=== PATIENT | female | born 1960 | race Caucasian/White ===

== ENCOUNTER → 2017-11-02 10:52 | Outpatient (CLI) | payer OTHER, SELFPAY ==
--- NOTE | 2017-11-02 10:55 | RAD_ITS ---
STUDY: X-RAY - LUMBAR SPINE REASON FOR EXAM: Female, 57 years old. Pain following injury. TECHNIQUE: 3 view(s) of the lumbar spine were obtained. COMPARISON: None FINDINGS: Normal lumbar lordosis. There is a minimal dextroscoliosis of the lumbar spine. There is a normal alignment of the vertebrae. Normal vertebral bodies and endplates. Normal disc space heights. The soft tissue structures are unremarkable. RAD/Lumbar Spine 2 or 3 Views IMPRESSION: No acute abnormality is seen. Electronically Signed: Jensen Cisneros MD at 11:28 EDT Tel [phone], Service support ,
--- NOTE | 2017-11-02 11:00 | RAD_ITS ---
STUDY: X-RAY - CERVICAL SPINE REASON FOR EXAM: Female, 57 years old. Neck pain following injury. TECHNIQUE: 3 view(s) of the cervical spine were obtained. COMPARISON: None FINDINGS: Normal anterior atlantoaxial articulation. Normal odontoid process. There is straightening of the normal cervical lordosis. There is multi-level endplate spondylosis. There is multi-level degenerative disc disease with multilevel disc space narrowing. Normal visualized intervertebral neuroforamina. The soft tissue structures are unremarkable. RAD/Cerv Spine 2 or 3 Views IMPRESSION: Loss of the normal cervical lordosis. Degenerative changes. Electronically Signed: Jensen Cisneros MD at 11:19 EDT Tel [phone], Service support ,
== END ==
PROVIDERS: Family Provider Family Medicine; PCP Family Medicine; Visit Provider Physician Assistant
DX: S16.1XXA Strain of muscle, fascia and tendon at neck level, initial encounter (principal); S39.012A Strain of muscle, fascia and tendon of lower back, initial encounter; X58.XXXA Exposure to other specified factors, initial encounter
CPT/HCPCS: 72040; 72100

== ENCOUNTER → 2018-12-28 11:22 | Outpatient (CLI) | payer BC, SELFPAY ==
[2018-12-28 11:03] VITALS: BMI 19.3
[2018-12-28 12:19] LABS: Absolute Lymphocyte Count 1.48 X10^3/ul (0.83-4.51); Absolute Neutrophil Count 4.2 X10^3/uL (2.0-7.7); Basophil# 0.03 X10^3/uL; Basophil% 0.5 % (0-1); Eosinophil# 0.15 X10^3/uL; Eosinophils% 2.3 % (0-5); Hematocrit 42.1 % (37-47); Hemoglobin 13.5 g/dl (12.0-15.0); Lymphocyte # 1.48 X10^3/ul (4.0); Lymphocyte % 23.1 % (19-41); Mean Corp Hgb Conc 32.1 g/gl (32-36); Mean Corpuscular Volume 93.6 fL (81-99); Monocyte# 0.57 X10^3/uL; Monocyte% 8.9 % (0-10); Neutrophil # 4.16 X10^3/uL (2.7-7.7); Platelet Count 227 K/mm3 (150-450); RBC Distribution Width CV 14.2 % (11.6-14.6); RBC Distribution Width SD 46.9 fl (35.1-43.9); White Blood Count 6.4 K/mm3 (4.4-11.0)
[2018-12-28 12:22] LABS: POSITIVE COUNT NO; POSITIVE DIFFERENTIAL NO; POSITIVE MORPHOLOGY NO
[2018-12-28 12:43] LABS: Anion Gap 6 (5-15); BUN 15 mg/dL (7-18); BUN/Creat Ratio 18.6 RATIO (10-20); Calcium,Total 8.9 mg/dL (8.5-10.1); Chloride 107 mmol/L (98-107); Creatinine, Serum 0.81 mg/dL (0.55-1.02); EST Glomerular Filtration Rate 77 mL/min (>60); Est Glom Filt Rate - Afr Amer 93 mL/min (>60); Glucose 84 mg/dL (74-106); Potassium 4.2 mmol/L (3.5-5.1); Sodium Level 142 mmol/L (136-145); Thyroid Stim Hormone (TSH) 1.47 uIU/mL (0.358-3.74)
== END ==
PROVIDERS: Family Provider Family Medicine; PCP Family Medicine; Visit Provider Family Medicine
DX: R53.83 Other fatigue (principal)
CPT/HCPCS: 36415; 80048; 84443; 85025

== ENCOUNTER → 2019-03-18 09:20 | Outpatient (CLI) | payer BC, SELFPAY ==
[2019-03-18 09:16] VITALS: BMI 19.5
--- NOTE | 2019-03-18 09:21 | RAD_ITS ---
STUDY: X-RAY - LEFT HAND REASON FOR EXAM: Female, 58 years old. Chronic pain TECHNIQUE: 3 view(s) of the hand. COMPARISON: None. FINDINGS: Previous amputation of the fourth digit. Remote deformity of the first tuft. Sutures in the ventral wrist soft tissues. No acute fractures or osteolytic lesions are seen. Visualized joint spaces are intact. RAD/Hand Min 3 Views IMPRESSION: No acute osseous abnormality is evident. Remote deformity of the first tuft. Electronically Signed: Julio Inman MD at 16:59 EDT Tel , Service support ,
== END ==
PROVIDERS: Family Provider Family Medicine; PCP Family Medicine; Referring Provider Orthopaedic Surgery; Visit Provider Orthopaedic Surgery
DX: M25.642 Stiffness of left hand, not elsewhere classified (principal)
CPT/HCPCS: 73130

== ENCOUNTER → 2019-08-12 13:08 | Outpatient (CLI) | payer BC, SELFPAY ==
[2019-08-12 06:37] VITALS: BMI 19.5
--- NOTE | 2019-08-12 13:09 | RAD_ITS ---
STUDY: X-RAY - RIGHT HAND, ATTENTION FIRST FINGER REASON FOR EXAM: Female, 58 years old. pain at base of thumb from repetitive motion at work TECHNIQUE: 3 view(s) of the finger were obtained. COMPARISON: None. FINDINGS: Normal metacarpal head. Normal metacarpophalangeal joint. Normal proximal phalanx. Normal middle phalanx. Normal distal phalanx. Normal proximal interphalangeal joint. Normal distal interphalangeal joint. RAD/Finger(s) Min 2 Views IMPRESSION: Normal x-ray examination of the finger. Electronically Signed: Jerry De La Rosa MD at 23:38 EST , Service support ,
== END ==
PROVIDERS: PCP Family Medicine; Referring Provider Physician Assistant Surgical; Visit Provider Physician Assistant Surgical
DX: M79.644 Pain in right finger(s) (principal)
CPT/HCPCS: 73140

== ENCOUNTER 2020-03-13 06:53 | Day surgery (SDC) | payer OTHER, BC, SELFPAY ==
[2020-02-10 08:01] VITALS: BMI 19.5
[2020-03-05 11:04] VITALS: BMI 19.5
--- NOTE | 2020-03-13 07:11 | HP.PCM_ITS ---
History and Physical Date of Admission: 03/13/20 Intake Vital Signs 03/05/20 BMI 19.5 Intake Visit Reasons: right thumb Chief Complaint: requests referral to mental health counseler Allergies codeine Allergy (Severe, Verified 06/30/19 08:30) unknown pentazocine [From Talwin] Allergy (Verified 08/12/19 06:35) Unknown Sulfa (Sulfonamide Antibiotics) Adverse Reaction (Verified 06/30/19 08:30) itching, vommitting [facility] Social History (Updated 03/05/20 @ 12:[address] Juma Sparks DO) Smoking Status: Never smoker alcohol intake: current alcohol intake frequency: a few times a week HPI right thumb: Details: Parts of this documentation were recorded by a scribe, this documentation accurately reflects the service provided and the decisions made by me, Dr. Juma Sparks DO 03/05/20 1022. JOSUE GONZALES is a 59 year old F here today for right thumb. Patient is here today to sign surgery consent for the right thumb A1 kin release. DOS scheduled for 03/13/2020. Denies numbness, tingling or other associated symptoms. ROS Const Denies frequent falls, Denies headache(s), Denies weakness Eyes Denies loss of vision ENT Denies headache(s) Card Denies fainting Denies nipple discharge Musc Denies abnormal walking, Reports joint pain, Denies joint swelling, Reports limited joint movement, Denies numbness, Denies radiating pain into limb, Reports stiffness, Denies tingling Skin/Breast Denies nipple discharge Neuro No abnormal walking, No behavioral changes, No confusion, No frequent falls, No headache(s), No loss of vision, No memory loss, No numbness, No fainting, No tingling, No weakness Psych Denies behavioral changes, Denies confusion, Denies memory loss Ortho Exam Right Wrist/Hand A1 kin trigger: Yes Right Wrist: No ROM-Flexion 0-80 WRIST: 90 degrees IP flexion 80 degrees AP flexion Faint triggering palpated on examination hypertrophied and tender A1 kin Supplemental Info 08/12/2019 x-ray right thumb no significant findings Assessment & Plan Problems 1. Strain of thumb, right 2. Trigger finger of right thumb M65.311 Plan We discussed surgical intervention which would be an A1 kin release of the thumb. We discussed the risk of radial digital nerve injury with surgery And potential consequences of. Educated that the surgery would not give her the same flexion that she has in the left hand. Reviewed the pre-operative plans with the patient. Risks and benefits of the procedure were fully explained, including but not limited to infection, neurovascular injury, continued pain, arthritis, stiffness, need for further surgery, re-injury, DVT, PE, general risks of anesthesia, and loss of limb or life. The patient understands all the risks and does wish to proceed with written consent. She will leave the surgical dressing on for 2 days post op then she can apply a band-aid to the incision. Follow up 2 weeks post op or sooner if pain, swelling, numbness or associated symptoms, or concerns develop. All questions answered. Patient in agreement of plan. Coding Level of Care Code Off vis,est,level 2 Diagnoses Strain of thumb, right Trigger finger of right thumb M65.311 I have re-examined the patient. There are no clinical changes since date of exam Procedure Criteria Procedure Type: Elective COVID Risk Discussion: The surgeon/proceduralist and patient have discussed in detail the risk of exposure to and/or potential harm posed by the COVID-19 virus with having a surgery/procedure at this time versus the risk of delaying the surgery/procedure. It is not possible to know either the risk of delaying the surgery or procedure or chance of getting an infection with perfect accuracy, but a joint decision was made between the patient and the surgeon/proceduralist to proceed at this time with the scheduled surgery/procedure as indicated on the consent form.
[2020-03-13 07:15] VITALS: BP 118/71; PULSE 51; RESP 16; TEMP 37.3; O2SAT 100; BMI 19.3
[2020-03-13] MEDS: Lactated Ringers 1,000 ML 100 ML IV (07:40)
[2020-03-13] MEDS: Cefazolin 2 GM in 0.9% Normal Saline 100 ML IV (08:04)
[2020-03-13 08:36] VITALS: BP 118/71; BP 129/72; PULSE 52; RESP 16; TEMP 36.4; O2SAT 95
--- NOTE | 2020-03-13 08:39 | DCINST_ITS ---
Discharge Diet: No Restrictions Keep extremity elevated above heart level: Operative Extremity Additional Instructions: Ice and elevate operative extremity next 72 hours. Keep dressing on clean and dry for 48 hours then may remove and allow warm soapy water to rinse over incision but do not submerge until sutures are out. Then apply bandaid over incision and change daily. encourage finger range of motion. Not lift more than 1/2 pound. Keep incision clean to avoid infection. Allergies/Adverse Reactions: Allergies codeine Allergy (Severe, Verified 03/07/20 10:03) unknown acetaminophen [From Percocet] Allergy (Verified 03/07/20 10:03) Hives oxycodone [From Percocet] Allergy (Verified 03/07/20 10:03) Hives pentazocine [From Talwin] Allergy (Verified 03/07/20 10:03) Unknown Sulfa (Sulfonamide Antibiotics) Adverse Reaction (Verified 03/07/20 10:03) itching, vommitting Medications to take at Discharge Buspirone HCl 5 mg PO QHS 03/07/20 Sertraline HCl [Zoloft] 50 mg PO QHS 03/07/20 Hydrocodone Bitart/Apap 5-325 [Warren 5MG-325MG] 1 - 2 tablet PO Q4H PRN PRN 5 Days #20 tablet 03/13/20 The following prescriptions were given: Hydrocodone Bitart/Apap 5-325 [Warren 5MG-325MG] 1 - 2 tablet PO Q4H PRN PRN 5 Days #20 tablet PRN Reason: Pain Transmission Status: Sent to [facility] Primary Care Physician: Clarence Unger DO [Primary Care Provider] - Test Results: Test results from this visit will be discussed in further detail at your follow- up appointment, if applicable.
[2020-03-13 08:40] VITALS: BP 114/77; BP 118/71; PULSE 51; RESP 16; O2SAT 97
--- NOTE | 2020-03-13 08:41 | PCM.OPRPT ---
Report of Operation Date of Procedure: 03/13/20 Description of Surgical Findings:: Preoperative diagnosis; right thumb digit trigger finger Postoperative diagnosis; same Procedure: Right thumb digit A1 kin release Anesthesia: Local with MAC Tourniquet time; 10 minutes 250 mm Hg Complications: None Indication for procedure; This is a 45-alse-nyo-female with symptoms consistent with trigger thumb. Risks benefits and alternatives were reviewed including risks of bleeding infection nerve tendon tissue damage need for further surgery and continued pain and symptoms, hypersensitivity to scar/incision and recurrence. Procedure; The patient was met in the preoperative holding area the operative extremity was identified by both patient and physician and was marked the patient was met by anesthesia and brought back to the operating room and transferred to the operating table in the supine position. Aanesthesia was started. A well-padded tourniquet was placed on the operative upper extremity. The patient was prepped and draped in the usual sterile fashion. A timeout was called to ensure the proper patient procedure and extremity were being contemplated. 0.5 percent Marcaine was injected into the incisional area. Esmarch was used tourniquet was inflated. 15 blade scalpel was used to make a longitudinal incision directly over the A1 kin was carried down through the subcutaneous tissue Nikko retractors placed radial and ulnar protecting the digital nerves and a Ragnell retractor was used at the apex of the incision under direct visualization a deep blade scalpel was used to release the A1 kin. The wound was thoroughly irrigated and closed with 4-0 nylon vertical mattress edges. Dressing was applied in the form of Xeroform 4 x 4 web roll and an Bishnu wrap. Patient tolerated the procedure well was brought back to the PACU in stable condition.
[2020-03-13 08:45] VITALS: BP 118/71; BP 119/74; PULSE 51; RESP 16; O2SAT 99
[2020-03-13 08:51] VITALS: BP 118/71; BP 127/75; PULSE 52; RESP 16; TEMP 36.7; O2SAT 99
[2020-03-13] MEDS: HYDROcodone Bitartrate/Apap 5/325 Tablet PO (09:22)
[2020-03-13 10:29] VITALS: BP 118/71; BP 131/87; PULSE 54; RESP 16; TEMP 37; O2SAT 100
== END 2020-03-13 10:31 | disposition home or self-care (01) ==
LOC: SDC 06:54 → AC 06:55
PROVIDERS: Anesthesiology; PCP Family Medicine; Referring Provider Orthopaedic Surgery; Visit Provider Orthopaedic Surgery
PROC: (CPT 26055; principal; 2020-03-13 08:20)
DX: M65.311 Trigger thumb, right thumb (principal); Z11.59 Encounter for screening for other viral diseases; F41.9 Anxiety disorder, unspecified; F32.9 Major depressive disorder, single episode, unspecified; Z79.899 Other long term (current) drug therapy
CPT/HCPCS: 01810; 26055; 87635; 94799; J7120; J2405; U0003

== ENCOUNTER 2020-04-23 09:30 | Outpatient (RCR) | payer OTHER, SELFPAY ==
[2020-03-28 09:07] VITALS: BMI 19.3
--- NOTE | 2020-04-16 13:57 | HP.OTEVAL_ITS ---
Patient's Visit Information JOSUE GONZALES is a 59 year old F, referred to Occupational Therapy by Dr. Juma Sparks DO, with a diagnosis of right trigger finger. Date of Evaluation: 04/16/20 Occupational Therapist: Sofia Gee, CORNELIUS/Leena, CHT - Subjective This 59 year old female was seen for OT eval with trigger finger release- in Jul. pt had injection but this wore off and she decided to have sx on 03/13/20. 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 2019. Now pain in palm of her hand- states pain is in AM - Pain right hand 2 Pain Intensity Range: 0, 6 - ROM CMC: right 15 left 15 MP: right 55 left 65 IP: right 55 left 90 Opposition: right 10 left 10 ROM Comments: pt has left D4 removed - Strength Senior Data Architect: right 50# left 60# Lateral Pinch: right 12# left 10# Tripod Pinch: right 8# left 10# Tip-to-Tip Pinch: right 10# left 10# - Sensation Sensation Comments: denies - Quick DASH-Disab of Arm,Shoulder& Hand Quick DASH Score: 10.0000 - Goals Goal:: pt will demo a increase in right logging assistant strength by 10# to increase ind with ADLs and IADLs by d/c Goal:: pt will demo a increase in right thumb AROM to increase ind with ADls and IADls by d/c Goal:: pt will report pain no greater than 1/10 with ADLs and IADls by d/c Goal:: pt will demo understanding of scar mtg by end of 2nd session. - Rehabilitation General Assessment: pt is currently 4 weeks and 6 days s/p right A1 kin release. pt demo with limited right thumb ROM and strength of dominate hand. this limites pt with ADLs and IADLs at this time. Pt would benefit from skilled OT services 2x week for 3-4 weeks to return pt to PLOF. Today therapist ed. pt on AROM, strengthening of thumb, tendong blocking and scar mtg. pt demo understanding and agree to POC Rehabilitation Potential: Good - Anticipated Interventions A/AAROM/PROM, Strengthening, Scar Care, Modalities, Joint Protection/Energy Conservation - Visit Plan Frequency: 2-3x /Week Duration: 4 Weeks TEXT: Thank you for the opportunity to evaluate your patient. For Medicare and Medicare HMO plans, please review the plan of care and approve it. It will need to be FAXED BACK to us at [phone] for Medicare purposes. Please let me know if there are questions or concerns regarding this plan of care. Physician Signature: Date:
--- NOTE | 2020-06-26 13:50 | HP.OT.NRP ---
JOSUE Stern CHRISTIAN was seen in my office for initial evaluation on 04/16/20. The following Plan of Care was established for this patient: Initial Frequency: 2-3x /Week Initial Duration: 4 Weeks Plan: cont POC Anticipated Interventions: A/AAROM/PROM, Strengthening, Scar Care, Modalities, Joint Protection/Energy Conservation This patient was last seen in our office 04/23/20. Pertinent comments regarding their Occupational therapy will appear below: pt was seen in OT for 3 visits and has not scheduled further apts. due to time lapse in services pt d/c at this time. At this point I will be discontinuing this patient from occupational therapy. I would be happy to see this patient again in the future if found appropriate by the physician. Thank you! Sofia Gee, OTR/L, CHT
== END 2020-04-23 19:00 | disposition home or self-care (01) ==
LOC: OT 09:30
PROVIDERS: PCP Family Medicine; Referring Provider Orthopaedic Surgery; Visit Provider Orthopaedic Surgery
DX: M65.311 Trigger thumb, right thumb (principal)
CPT/HCPCS: 97035; 97110; 97166; 97530

== ENCOUNTER → 2020-12-19 10:10 | Outpatient (CLI) | payer BC, SELFPAY ==
[2020-11-21 08:57] VITALS: BMI 19.3
--- NOTE | 2020-12-19 10:13 | BI_ITS ---
MAMMOGRAPHY - BILATERAL SCREENING REASON FOR EXAM: Female, 60 years old. Routine annual screening examination. PERTINENT HISTORY: Non-contributory. Bilateral breast implants. TECHNIQUE: Digital bilateral breast geri (3D mammographic acquisition) in the CC and MLO projections. 2-D mediolateral oblique (MLO) and craniocaudad (CC) views of both breasts were obtained. CAD: Full Field Digital Mammography with Computer Added Detection was performed. COMPARISON: Comparison is made with prior study dated 02/11/2013. FINDINGS: Breast Composition: The breasts are extremely dense, which lowers the sensitivity of mammography. There are no dominant masses or suspicious calcifications. Stable appearance of the bilateral breast implants. No other significant abnormalities are identified. There has been no significant change since the prior study. BI/SCRN MAMM (CAD)W/GERI BILAT IMPRESSION: Stable bilateral screening mammogram. Yearly follow-up mammogram recommended. (A) ASSESSMENT CATEGORY: BIRADS Category 2: Benign. A letter regarding these results will be sent to the patient by the facility within 30 days. Approximately 10% of breast cancers are not detected by mammography. A normal mammogram should not delay biopsy of a clinically suspicious abnormality. [id number] Electronically Signed: Jensen Cisneros MD at 11:01 EDT , Service support ,
== END ==
PROVIDERS: PCP Family Medicine; Referring Provider Family Medicine; Visit Provider Family Medicine
DX: Z12.31 Encounter for screening mammogram for malignant neoplasm of breast (principal)
CPT/HCPCS: 77063; 77067

== ENCOUNTER → 2021-05-15 08:55 | Outpatient (CLI) | payer BC, SELFPAY ==
[2021-05-15 12:18] LABS: Anion Gap 6 (5-15); BUN 19 mg/dL (7-18); BUN/Creat Ratio 20.6 RATIO (10-20); Calcium,Total 9.7 mg/dL (8.5-10.1); Chloride 103 mmol/L (98-107); Cholesterol 211 mg/dL (200); Creatinine, Serum 0.92 mg/dL (0.55-1.02); EST Glomerular Filtration Rate 66 mL/min (>60); Est Glom Filt Rate - Afr Amer 79 mL/min (>60); Glucose 85 mg/dL (74-106); High Density Lipoprotein 86 mg/dL; Potassium 4.3 mmol/L (3.5-5.1); Sodium Level 138 mmol/L (136-145); Triglycerides 79 mg/dL; Very Low Density Lipoprotein 16 mg/dL (5-40)
== END ==
PROVIDERS: PCP Family Medicine; Referring Provider Family Medicine; Visit Provider Family Medicine
DX: R53.82 Chronic fatigue, unspecified (principal)
CPT/HCPCS: 36415; 80048; 80061

== ENCOUNTER → 2022-12-23 | Outpatient (CLI) | payer OTHER, SELFPAY ==
[2022-12-23 12:26] LABS: Absolute Lymphocyte Count 1.16 X10^3/uL (0.83-4.51); Absolute Neutrophil Count 2.6 X10^3/uL (2.0-7.7); Basophil# 0.04 X10^3/uL; Basophil% 0.9 % (0-1); Eosinophil# 0.16 X10^3/uL; Eosinophils% 3.7 % (0-5); Hematocrit 41.4 % (37-47); Hemoglobin 13.4 g/dL (12.0-15.0); Lymphocyte # 1.16 X10^3/ul (0.83-4.51); Lymphocyte % 26.9 % (19-41); Mean Corp Hgb Conc 32.4 g/dL (32-36); Mean Corpuscular Volume 98.8 fL (81-99); Mean Platelet Vol. 10.9 fl (6.2-12.0); Monocyte# 0.36 X10^3/uL; Monocyte% 8.3 % (0-10); NRBC Flagged by Analyzer 0 % (0-5); Neutrophil # 2.59 X10^3/uL (2.7-7.7); Platelet Count 225 K/mm3 (150-450); RBC Distribution Width CV 12.8 % (11.6-14.6); RBC Distribution Width SD 46.5 fl (35.1-43.9); Red Blood Count 4.19 M/mm3 (4.2-5.4); White Blood Count 4.3 K/mm3 (4.4-11.0)
[2022-12-23 13:25] LABS: Anion Gap 8 (5-15); BUN 18 mg/dL (7-18); BUN/Creat Ratio 23.3 RATIO (10-20); Calcium,Total 9.6 mg/dL (8.5-10.1); Chloride 106 mmol/L (98-107); Creatinine, Serum 0.77 mg/dL (0.55-1.02); EST Glomerular Filtration Rate 80 mL/min (>60); Est Glom Filt Rate - Afr Amer 96 mL/min (>60); Glucose 82 mg/dL (74-106); Potassium 4.8 mmol/L (3.5-5.1); Sodium Level 140 mmol/L (136-145); Thyroid Stim Hormone (TSH) 3.78 uIU/mL (0.358-3.74)
== END | disposition home or self-care (01) ==
LOC: BIMLAB 08:54
PROVIDERS: PCP Family Medicine; Referring Provider Family Medicine; Visit Provider Family Medicine
DX: F41.9 Anxiety disorder, unspecified (principal)
CPT/HCPCS: 36415; 80048; 84443; 85025

== ENCOUNTER → 2023-02-24 | Outpatient (CLI) | payer OTHER, SELFPAY ==
--- NOTE | 2023-02-24 10:51 | RAD_ITS ---
STUDY: X-RAY - CERVICAL SPINE REASON FOR EXAM: Female, 62 years old. neck pain TECHNIQUE: 5 view(s) of the cervical spine were obtained. COMPARISON: None FINDINGS: Normal anterior atlantoaxial articulation. Normal odontoid process. Normal cervical lordosis. There is multi-level endplate spondylosis. There is multi-level degenerative disc disease with multilevel disc space narrowing. Normal visualized intervertebral neuroforamina. The soft tissue structures are unremarkable. There is no demonstrated fracture of the cervical spine. RAD/Cerv Spine 4 or 5 Views IMPRESSION: Multilevel degenerative changes with no acute abnormality. Electronically Signed: Connor Granda MD at 17:42 EDT ,
== END | disposition home or self-care (01) ==
LOC: MTRAD 10:51
PROVIDERS: PCP Family Medicine; Referring Provider Family Medicine; Visit Provider Family Medicine
DX: M54.2 Cervicalgia (principal)
CPT/HCPCS: 72050

== ENCOUNTER → 2023-07-10 | Outpatient (CLI) | payer OTHER, SELFPAY ==
--- NOTE | 2023-07-10 13:11 | BI_ITS ---
MAMMOGRAPHY - BILATERAL SCREENING REASON FOR EXAM: Female, 62 years old. Routine annual screening examination. PERTINENT HISTORY: Sister with breast cancer. Bilateral breast implants. TECHNIQUE: Digital bilateral breast geri (3D mammographic acquisition) in the CC and MLO projections. 2-D mediolateral oblique (MLO) and craniocaudad (CC) views of both breasts were obtained. CAD: Full Field Digital Mammography with Computer Added Detection was performed. COMPARISON: Comparison is made with prior study dated December 19, 2020 and February 11, 2013. FINDINGS: Breast Composition: The breasts are extremely dense, which lowers the sensitivity of mammography. There are no dominant masses or suspicious calcifications. Stable appearance of the bilateral breast implants. No other significant abnormalities are identified. There has been no significant change since the prior study. BI/SCRN MAMM (CAD)W/GERI BILAT IMPRESSION: Stable bilateral screening mammogram. Yearly follow-up mammogram recommended. (A) ASSESSMENT CATEGORY: BIRADS Category 2: Benign. A letter regarding these results will be sent to the patient by the facility within 30 days. Approximately 10% of breast cancers are not detected by mammography. A normal mammogram should not delay biopsy of a clinically suspicious abnormality. [id number] Electronically Signed: Jensen Cisneros MD at 14:25 EST ,
== END | disposition home or self-care (01) ==
LOC: OPBI 13:10
PROVIDERS: PCP Family Medicine; Referring Provider Family Medicine; Visit Provider Family Medicine
DX: Z12.31 Encounter for screening mammogram for malignant neoplasm of breast (principal)
CPT/HCPCS: 77063; 77067

== ENCOUNTER → 2023-07-25 | Outpatient (CLI) | payer OTHER, SELFPAY ==
--- NOTE | 2023-07-25 08:29 | MRI_ITS ---
EXAM: MR CERVICAL SPINE WITHOUT INTRAVENOUS CONTRAST CLINICAL INDICATION: neck pain- RIGHT SIDE TECHNIQUE: Multiplanar and multisequence MR images of the cervical spine without intravenous contrast were performed. COMPARISON: Plain films February 24, 2023. FINDINGS: VERTEBRAE: Straightening and mild reversal of the usual lordotic curvature, centered at C4-5. SPINAL CORD: Unremarkable in signal and morphology. SOFT TISSUES: Unremarkable. No prevertebral soft tissue swelling. LYMPH NODES: Unremarkable. There is no cervical adenopathy. DISCS/SPINAL CANAL/NEURAL FORAMINA: C2-C3: Unremarkable. Normal disc height and morphology. Normal spinal canal. Normal neuroforamina. C3-C4: Moderate disc space narrowing with mild uncovertebral osteophytes and minimal endplate changes, small uncovertebral osteophytes and mild bilateral neural foraminal stenosis. No tanisha spinal stenosis. C4-C5: Moderate decreased disc height and anterior mild broad-based disc protrusion, uncovertebral osteophytes and mild neural foraminal narrowing, greater on the left. No spinal stenosis or cord impingement. C5-C6: Moderate decreased disc height, uncovertebral osteophyte-disc complexes, moderate right greater than left neural foraminal stenosis due to osteophyte-disc complex, and mild narrowing of the ventral thecal sac without tanisha cord impingement or canal stenosis. C6-C7: Moderate disc space narrowing, uncovertebral osteophytes, at least moderate left and mild right neural foraminal stenosis, mild annular disc bulge. No tanisha spinal stenosis or cord impingement. C7-T1: Unremarkable. Normal disc height and morphology. Normal spinal canal. Normal neuroforamina. MRI/Spine Cervical (Routine) IMPRESSION: Multilevel degenerative changes with uncovertebral osteophyte-disc complexes and multilevel neural foraminal stenosis, greatest on the left at C4-5 and C5-6. No tanisha spinal canal stenosis or cord impingement. No visible frankly herniated disc Electronically Signed: Elen Short MD at 4:14 EST ,
--- OUTSIDE RECORDS SUMMARY | 2023-07-25 08:29 | XMS RPT_ITS | CCD ---
Author Name Unknown Address [address] [place] [address] Organization [facility] Care Team Providers Care Distribution Center Manager Name Role Phone WAYEva MARY LOU Unavailable Unavailable BRADLEY AWAD Unavailable Unavailable Results Test Name Value Interpretation Reference Range Facil ity Encounters Encounter Date Encounter Type Care Provider Facility Start: 06-29-2017 End: 06-30-2017 [address] [facility] Facility:B Payers Date Payer Category Payer Unknown [id number] Summary Purpose Family History No Family History Records Found Advance Directives No Advanced Directives Records Found Additional Source Comments INFORMATION SOURCE (unrecogn ized section and content) FOR RECORDS PERTAINING TO PATIENTS WHO ARE OR HAVE BEEN ENROLLED IN A CHEMICAL DEPENDENCY/SUBSTANCEABUSE PROGRAM, SOME INFORMATION MAY BE OMITTED. This clinical summary was aggregated from multiple sources. Caution should be exercised in using it in the provision of clinical care. This summary normalizes information from multiple sources, and as a consequence, information in this document may materially change the coding, format and clinical context of patient data. In addition, data may be omitted in some cases. CLINICAL DECISIONS SHOULD BE BASED ON THE PRIMARY CLINICAL RECORDS. [employer] provides no warranty or guarantee of the accuracy or completeness of information in this document.
== END | disposition home or self-care (01) ==
LOC: MRI 08:27
PROVIDERS: PCP Family Medicine; Referring Provider Family Medicine; Visit Provider Family Medicine
DX: M54.2 Cervicalgia (principal)
CPT/HCPCS: 72141

== ENCOUNTER 2023-10-28 06:18 | Observation (INO) | payer OTHER, MEDICARE, SELFPAY ==
--- NOTE | 2023-10-21 08:34 | EKG12_ITS ---
Test Reason : PRE-OP Blood Pressure : / mmHG Vent. Rate : 057 BPM Atrial Rate : 057 BPM P-R Int : 152 ms QRS Dur : 078 ms QT Int : 432 ms P-R-T Axes : 087 034 071 degrees QTc Int : [address] & T WAVE ABNORMALITY, NON SPECIFIC Confirmed by Chalo Guerra ([id number]), desk editor JAY NEW ([id number]) on 10/21/2023 9:43:35 AM Referred By: MAYANK Confirmed By:Chalo Guerra
[2023-10-21 09:28] LABS: Absolute Neutrophil Count 2.6 X10^3/uL (2.0-7.7); Basophil# 0.03 X10^3/uL; Basophil% 0.7 % (0-1); Eosinophil# 0.11 X10^3/uL; Eosinophils% 2.6 % (0-5); Hematocrit 39.9 % (37-47); Lymphocyte % 26.4 % (19-41); Mean Corp Hgb Conc 32.6 g/dL (32-36); Mean Corpuscular Hgb 30.7 pg (27.0-32.0); Mean Corpuscular Volume 94.3 fL (81-99); Mean Platelet Vol. 9.8 fl (6.2-12.0); Monocyte# 0.33 X10^3/uL; Monocyte% 7.9 % (0-10); NRBC Flagged by Analyzer 0 % (0-5); Neutrophil # 2.59 X10^3/uL (2.7-7.7); Neutrophil % 62.2 % (47-70); Platelet Count 259 K/mm3 (150-450); RBC Distribution Width CV 12.9 % (11.6-14.6); RBC Distribution Width SD 44.2 fl (35.1-43.9); Red Blood Count 4.23 M/mm3 (4.2-5.4); White Blood Count 4.2 K/mm3 (4.4-11.0)
[2023-10-21 10:00] LABS: Anion Gap 6 (5-15); BUN 13 mg/dL (7-18); BUN/Creat Ratio 16.8 RATIO (10-20); Calcium,Total 9.2 mg/dL (8.5-10.1); Chloride 108 mmol/L (98-107); Creatinine, Serum 0.77 mg/dL (0.55-1.02); EST Glomerular Filtration Rate 80 mL/min (>60); Est Glom Filt Rate - Afr Amer 97 mL/min (>60); Glucose 85 mg/dL (74-106); Magnesium 2.4 mg/dL (1.6-2.6); Potassium 3.8 mmol/L (3.5-5.1); Sodium Level 141 mmol/L (136-145)
[2023-10-21 11:26] LABS: HIV - WCH Non-Reactive (Nonreactive); Hepatitis B Surface Antibody Reactive; Hepatitis C Antibody Non-Reactive (Nonreactive)
[2023-10-22 05:07] LABS: Hepatitis A AB, Total Negative (Negative)
[2023-10-28] VITALS (15 sets, daily range): BP systolic 133–164; BP diastolic 61–105; PULSE 57–76; RESP 14–18; TEMP 36.6–37; O2SAT 92–99; BMI 20.8
[2023-10-28] MEDS: Acetaminophen 500 MG Tablet 1000 MG PO ×3 (06:47→20:12)
[2023-10-28] MEDS: dexAMETHasone 10 MG/ML Vial 8 MG IV (06:48)
[2023-10-28] MEDS: Magnesium 1 GM over 15 mins IV (06:48)
[2023-10-28 07:25] LABS: Bedside Glucose 61 mg/dL (74-106)
--- NOTE | 2023-10-28 07:28 | HP.PCM_ITS ---
History and Physical Date of Admission: 10/28/23 MR#: [id number] Acct: [id number] Name: JOSUE GONZALES Rep #: [id number]
--- NOTE | 2023-10-28 07:28 | PCM.HP.BLA ---
History and Physical Date of Admission: 10/28/23 MR#: [id number] Acct: [id number] Name: ALLIE GONZALES Rep #: [id number] : 1960 Provider: Dr. Johnson Diallo MD Age/Sex: 63/F Location: [facility] Status: Signed Intake Vital Signs 06/30/2308:51 10/13/2410:22 Height 5 ft 9 in 5 ft 9 in Intake Visit Reasons: cervical spine Accompanied by: Self Is patient in pain?: Yes Pain scale (1-10): 3 Allergies codeine Allergy (Severe, Verified 10/20/23 10:25) unknownacetaminophen [From Percocet] Allergy (Verified 10/20/23 10:25) Hivesoxycodone [From Percocet] Allergy (Verified 10/20/23 10:25) Hivespentazocine [From Talwin] Allergy (Verified 10/20/23 10:25) Unknownhydrocodone Adverse Reaction (Verified 10/20/23 10:25) VomitingSulfa (Sulfonamide Antibiotics) Adverse Reaction (Verified 10/20/23 10:25) itching, vommitting Medications sertraline 100 mg tablet 100 mg PO QHS depression #145 tabs 12/23/22 [Rx Confirmed 10/20/23] buspirone 10 mg tablet 10 mg PO BID depression #180 tabs 06/07/23 [Rx Confirmed 10/20/23] hydrocodone-acetaminophen 5-325mg 5mg-325mg 1 tab PO TID PRN pain 10/14/23 [History Confirmed 10/20/23] famciclovir 500 mg tablet 500 mg PO BID PRN COLD SORES 10/16/23 [History Confirmed 10/20/23] PFSH Medical History (Updated 10/20/23 @ 10:26 by Margaux Hwang) Alcohol use Arthritis Cancer H/O exam under anesthesia with epidural steroid injection History of IBS History of melanoma neck and back pain Non-smoker Wears glasses Surgical History History of amputation of finger History of appendectomy History of hysterectomy skin cancer removal Status post trigger finger release Family History Sister Cancer, Onset Age: 68 stage one breast cancer Social History Smoking Status: Never smoker alcohol intake: current alcohol intake frequency: a few times a week HPI cervical spine Details: This documentation accurately reflects the service provided and the decisions made by me, Dr. Johnson Diallo MD 10/20/23 1020. Part of today?s visit was documented by Margaux Gramajo ATC, acting as scribe. ALLIE GONZALES is a 63 year old F here today for pre-op for anterior cervical spine disc fusion. Patient states pain has pretty much stayed the same since her last visit. She has gotten epidural injections which was on 09/10/[address] King and he also gave her a prescription for hydrocodone to take for the pain. Allie continues to have right-sided neck pain but also gets numbness in both fingertips worse on the left than the right. She has had multiple epidural steroid injections. She is also being started with hydrocodone by Dr. King recently. Her pain is affecting her quality of life and is here for her preoperative visit. Following is a previous history. 09/25/23: ALLIE GONZALES is a 62 year old F here today for follow up on neck pain. Pt. was seen by pain management and received two steroid injections which she states were not effective in relieving her pain and discomfort. She states she does experience some intermittent bilateral finger numbness and tingling. Her pain is aggravated with heavy lifting she is required to do at work. Allie has had 2 sets of epidural injections both transforaminal as well as interlaminar by Dr. King over the last 2 months. Her first injection gave her some temporary relief but the second injection did not seem to give her any relief. She is also going through months of physical therapy without any significant relief. She has not noticed tingling numbness in both hands and the tips of index and middle fingers. She is however not bothered significantly by the numbness. She continues to have neck pain which is right-sided and goes along the trapezius. 08/07/23: ALLIE GONZALES is a 62 year old F here today for cervical spine pain. She reports a nine month history of neck pain. She has seen a chiropractor, PT and had cortisone injections with minimal relief. She reports constant dull, sharp and stabbing pain in her neck. She reports the pain is worse the pain is worse on the right side. She reports when driving her fingers will become tingling and numb. She recently has a cervical spine MRI. Allie does not remember any injury that started her pain. She did not have any neck pain prior to a year ago. She says that the neck pain is in the right paraspinal region goes up to the mastoid region and sometimes the occiput and sometimes along the trapezius. She does not have any left-sided pain. She does not have any radicular pain below the shoulder. She has some on and off numbness in the fingertips on both sides. She is right-hand dominant. She denies dropping objects or any dexterity issues. She denies any balance issues. She has tried physical therapy, chiropractic treatment, trigger point injections. Ortho Exam General General: Yes no acute distress Neurologic: Yes alert and Yes oriented x3 Spine SPINE TESTING CERVICAL THORACIC LUMBAR Musculoskeletal Strength 0=absent - 5=normal Details: Examination of the neck shows right paraspinal tenderness in upper cervical region. Neurologic evaluation of upper extremity shows 5 x 5 power in all muscles normal sensations in all dermatomes. Neli's negative. Examination of both hands shows positive carpal tunnel compression test negative Tinel sign negative Phalen test. Coding Level of Care Code Off vis,est,level 4 Diagnoses Spondylolisthesis, cervical region M43.12 Time Spent (min) 45 Assessment and Plan Assessment and Plan (1) Spondylolisthesis, cervical region: Status: Acute Plan I again reviewed her cervical spine x-rays and MRI done over the last few months. These show C3-4 spondylolisthesis which is present in the neutral and flexion views but reduces on extension views suggestive of dynamic instability. C4-5 and C5-6 shows significant disc degeneration with disc height loss. Reversal of cervical lordosis in the neutral view is noticed. MRI shows right foraminal stenosis C3-4 and bilateral mild foraminal stenosis at C4-5 and left foraminal stenosis at C5-6. I explained to her options of treatment which include continued nonoperative treatment measures versus surgery. She says that she has tried multiple different nonsurgical modalities including physical therapy, chiropractic treatment, trigger point injections, epidural injections without significant relief. She wishes to proceed with surgical intervention as her symptoms are affecting her quality of life and activities of daily living. I went over surgical options in detail with the patient. She has reversal of cervical lordosis along with unstable C3-4 spondylolisthesis. I recommended surgery in the form of C3-5 ACDF with possible inclusion of C5-6. At the C5-6 only has left-sided foraminal stenosis, and at this time she does mention of left worse than right hand numbness. Considering this we will include C3-6 in the surgical procedure. Surgery will be C3-6 ACDF. All risk benefits and alternatives to surgery were discussed in detail. The risks include but are not limited to infection, bleeding, injury to nerves and vessels, esophageal injury, recurrent laryngeal injury, Melida syndrome, dysphagia, dysphonia, pneumonia, atelectasis, cardiopulmonary event, DVT, pulm embolism, stroke, pseudoarthrosis, hardware failure, subsidence, need for further surgeries, adjacent segment degeneration. Patient understands and agrees to proceed with surgery. Consent was signed.
[2023-10-28] MEDS: Cefazolin 2 GM in 0.9% Normal Saline (100mL Bag) 100 ML IV ×2 (07:37→16:55)
--- NOTE | 2023-10-28 07:45 | RAD_ITS ---
PROCEDURE: Intraoperative fluoroscopic services provided for anterior cervical fusion. DATE OF EXAMINATION: October 28, 2023. INDICATION: Female, 63 years old. Chronic neck pain. FLUOROSCOPY TIME (if supplied): (11.3 seconds) minutes/seconds. 0.74 mGy. 3 images were obtained. RAD/Cerv Spine 2 or 3 Views IMPRESSION: Intraoperative imaging provided for anterior fusion at the C3-C4 C4-C5 and C5-C6 levels. Electronically Signed: Jensen Cisneros MD at 13:11 EDT ,
--- NOTE | 2023-10-28 10:45 | OP.PCM_ITS ---
Report of Operation Date of Procedure: 10/28/23 Description of Surgical Findings:: Preoperative diagnosis: C3-6 disc degeneration with stenosis Postoperative diagnosis: C3-6 disc degeneration with stenosis Name of procedure: C3-6 anterior cervical discectomy and fusion with plate instrumentation - Anterior cervical fusion C3-4, CPT code 07316 - Anterior plate instrumentation C3-6, CPT code 34852/59 - Anterior cervical fusion C4-5, CPT code 86345/51 - Anterior cervical fusion C5-6, CPT code 62348/51 -C3-4 structural allograft bone with DBX, CPT code 20746 -C4-5 structural allograft bone with DBX, CPT code 32703 -C5-6 structural allograft bone with DBX, CPT code 69433 Attending surgeon: Johnson Diallo M.D. Anesthesia: Gen. endotracheal Estimated blood loss: 50 mL Complications: None Instrumentation used: Medtronic [place] Elite plate, LASR corticocancellous block Indications: The patient is a pleasant 63-year-old lady who presented with neck pain, left worse than right upper extremity radiation with weakness and numbness. MRI showed C3-4 spondylolisthesis, C3-6 disc degeneration with silvio inal stenosis worse on the left. After failing a prolonged course of nonsurgical treatment, the patient requested surgical treatment. All risks and benefits of the procedure were explained to the patient. The risks include but are not limited to infection, bleeding, injury to nerves and vessels, vertebral artery injury, spinal cord injury, paralysis, vocal cord paralysis, injury to esophagus, pseudoarthrosis, need for further procedures, adjacent segment degeneration. Procedure: The patient was identified in the preoperative suite using unique patient identifiers. Skin was marked consent was taken and all questions were answered. The patient was then brought back to the operative room and a timeout was performed. General endotracheal anesthesia was given. Intraoperative neuro monitoring leads were applied. The patient was carefully positioned supine on a regular OR table. A lateral view with a C-arm was done to identify the level and to define the incision. The anterior neck was then prepped and draped in the usual fashion. A final timeout was then performed. A transverse skin incision was taken to the left of midline. Subcutaneous tissue was then divided with Bovie. Platysma was identified and cut along the incision with scissors. The fascial interval between the sternocleidomastoid and the larynx was developed. Omohyoid was identified and retracted. The esophagus with the larynx was retracted medially to reach the prevertebral fascia. Marker x-ray was performed with bent spinal needle and disc space and levels were confirmed. Longus coli muscle was elevated on both sides at and above and below C3-6 discs. Self-retaining retractors were then placed. A long handle knife was then used to perform annulotomy at C3-4. Disc fragments were removed with the pituitary. Eagan pins were placed in C3 and C4 for disc distraction. Curettes and bur was utilized to remove cartilage from the endplates. Discectomy was performed laterally up to the uncovertebral joints. Posterior osteophytes were thinned down with the bur and adequate decompression in the central and foraminal areas were performed and PLL was thinned out. Once the disc space was prepared, trials of various sizes were utilized. Thorough irrigation was given. 6 mm LASR cortical cancellous allograft bone large footprint was then fashioned in such a way that concavities were burred out inferiorly and superiorly and half cc of DBX (demineralized bone matrix) was squeezed into the cancellous portion. The graft was then inserted into the C3-4 disc space. The retractors were then repositioned and the procedure was repeated for C4-5 and C5-6 discs with complete discectomy. Graft sizes were 5 mm at with large footprint at C4-5, and 6 mm with large footprint at C5-6. The grafts were found to be in good apposition with good pullout strength. A 55 mm Medtronic [place] Elite plate was then fixed to C3-6 with 15 mm screws. A lateral x-ray was then taken to check the length of the screws. Both AP and lateral x-rays showed good positioning of plate and screws. The locking mechanism over the screw heads was then turned. Thorough irrigation was again given. Hemostasis was achieved. A [place] drain was then inserted. Closure was done with 3-0 Vicryl for the platysma and subcutaneous tissue layers and 4-0 Monocryl for the skin. Closure was done around the drain. Steri-Strips were applied and dressing was done with 4 x 4 gauze and Tegaderm. A cervical collar was then applied. The patient was then woken up from anesthesia extubated and taken to PACU in stable condition. From here, the patient will be transitioned to the floor. Intraoperative neuro monitoring was performed throughout this procedure. Motor evoked potentials were run periodically. All potentials remained at baseline throughout the procedure. I was present for the entire surgery and performed the surgery myself. Admit VTE Documentation VTE Mechan Device Prophylaxis: SCD's Procedures Musculoskeletal [id number]: Other Procedure See Report
[2023-10-28] MEDS: dexAMETHasone 4 MG/ML Vial IV ×2 (13:21→18:09)
[2023-10-28] MEDS: oxyCODONE 5 MG Tablet PO ×2 (13:30→20:13)
[2023-10-28] MEDS: Methocarbamol 500 MG Tablet 1000 MG PO ×3 (15:36→20:12)
--- NOTE | 2023-10-28 16:48 | CON.PCM.HO_ITS ---
Assessment & Plan Assessment/Plan (1) Spondylolisthesis, cervical region: PLAN: Plan This is a 63-year-old female is seen as medicine consult for perioperative management of C3-C6 disc degeneration with stenosis 1. C3 6 and extension at the stenosis status post anterior cervical discectomy and fusion with plate instrumentation: Patient is admitted on [facility] floor. Patient has cervical collar. Pain is controlled. No acute radiating pain. Voiding urine spontaneously. No Palacios catheter. DVT prophylaxis as per surgical discretion. 2. Elevated blood pressure without diagnosis of hypertension: BP was 163/90 during anesthesia, fluctuates to the lowest 138/83. Most recent 153/83. Patient not on antihypertensive medication at home. Advised home or ambulatory BP monitoring after discharge to diagnose hypertension in consultation with PCP. 3. History of IBS, mild anxiety/depression: Patient on buspirone and sertraline continued. 4. Chronic course/herpes labialis: On famciclovir at home changed to acyclovir, hospital formulary. HPI Consult Data Date of Consult: 10/28/23 HPI Narrative Reason for Consultation: Perioperative management after cervical spine surgery. HPI Narrative: JOSUE GONZALES, is a 63 F who is admitted after anterior cervical spine disc fusion surgery. Patient has chronic right-sided neck pain almost 1 year with numbness in both fingertips worse on the left hand. She had failed conservative management including multiple epidural steroid injections, pain medications including hydrocodone, physical therapy. She voided urine spontaneously after surgery. Denies nausea, vomiting, abdomi nal pain or alteration of bowel habits. Denies chest pain pressure or tightness or shortness of breath or palpitation. No fever. Patient denies history of smoking, chronic heart disease or lung disease including CAD, CHF or COPD. She has other past medical history as mentioned below including IBS, melanoma chronic neck and back pain. [facility] Medical History Alcohol use Arthritis Cancer H/O exam under anesthesia with epidural steroid injection History of IBS History of melanoma neck and back pain Non-smoker Wears glasses Home Medications sertraline 100 mg tablet 100 mg PO QHS depression #145 tabs 12/23/22 [Rx Last Taken 10/28/23] buspirone 10 mg tablet 10 mg PO BID depression #180 tabs 11/12/23 [Rx Last Taken 10/28/23] hydrocodone-acetaminophen 5-325mg 5mg-325mg 1 tab PO TID PRN pain 10/14/23 [History Last Taken 10/27/23] famciclovir 500 mg tablet 500 mg PO BID PRN COLD SORES 10/16/23 [History Last Taken 10/21/23] Allergy/AdvReac Type Severity Reaction Status Date / Time codeine Allergy Severe unknown Verified 10/28/23 06:27 acetaminophen [From Percocet] Allergy Hives Verified 10/28/23 06:27 oxycodone [From Percocet] Allergy Hives Verified 10/28/23 06:27 pentazocine [From Talwin] Allergy Unknown Verified 10/28/23 06:27 hydrocodone AdvReac Vomiting Verified 10/28/23 06:27 Sulfa (Sulfonamide AdvReac itching, Verified 10/28/23 06:27 Antibiotics) vommitting Family History Sister Cancer, Onset Age: 68 stage one breast cancer Surgical History History of amputation of finger History of appendectomy History of hysterectomy skin cancer removal Status post trigger finger release Social History Smoking Status: Never smoker alcohol intake: current alcohol intake frequency: a few times a week ROS ROS Narrative Constitutional: chronic neck pain. No fever. HEENT: Reports systems reviewed and no addt'l complaints, except as documented Respiratory/Chest: No acute shortness of breath or respiratory distress or wheezing. CVS: No chest pain pressure or tightness Gastrointestinal: Denies coffee ground emesis, hematemesis or vomiting Genitourinary: Denies burning urination or new urinary tract symptoms Musculoskeletal: Denies acute joint pain or limited range of motion. No acute injury Neurologic: Denies seizure-like symptoms. Numbness in both hands. Peripheral neuropathy. skin: No ulcer. No rash Endocrinology: Reports systems reviewed and no addt'l complaints, except as documented Hematologic/Lymphatic: Reports systems reviewed and no addt'l complaints, except as documented Rest 14 ROS are negative except as mentioned in HPI Physical Exam Narrative General: Alert, Oriented x3, Cooperative HEENT: Atraumatic, PERRLA, EOMI, Normocephalic Oral: Oral mucosa moist. No Gingival or Mucosal Lesions/ Ulcerations Neck: Surgical dressing anteriorly, dry. No staining. Supple, No JVD, Negative Carotid Bruits Chest wall/Lungs: Air entry diminished in bilateral lung bases. No crepitation/rhonchi Cardiovascular: Regular rate, Regular Rhythm, Normal S1, Normal S2, No M/G/R Abdomen: Bowel Sounds Present, Soft, Non Tender, Non-Distended : No dysuria. No renal angle tenderness. No suprapubic tenderness. Extremities: No edema, Capillary Refill Less than 3 Seconds Skin: No rashes, No breakdown Musculoskeletal: No Tenderness to Palpation of Joints or Extremities Neurological: Cranial nerves II-XII grossly intact, DTR 2+/4. No acute focal neurological deficit. Psych/Mental Status: Normal Affect, Appropriate. Lab / Micro Data 10/21/23 08:46 10/21/23 08:46 Labs: Laboratory Results - last 24 hr 10/28/23 06:44: POC Glucose 61 L Imaging Radiology Impression Cervical Spine X-Ray 10/28/23 07:45 IMPRESSION: Intraoperative imaging provided for anterior fusion at the C3-C4 C4-C5 and C5-C6 levels. Electronically Signed: Jensen Cisneros MD at 13:11 EDT , Charges/Coding Visit Charges Office Visits / Consults: 33432 IP Consult L3
[2023-10-28] MEDS: Ensure Surgery 237 ML LIQUID PO (18:12)
[2023-10-28] MEDS: Morphine 2 MG/ML Syringe IV (18:51)
[2023-10-28] MEDS: Lactated Ringers 1,000 ML 100 ML IV (20:04)
[2023-10-28] MEDS: Ondansetron 4 MG/2 ML Vial IV (20:09)
[2023-10-28] MEDS: busPIRone 5 MG Tablet 10 MG PO (20:11)
[2023-10-28] MEDS: Senna/Docusate Sodium 1 Tablet 2 TABLET PO (20:12)
[2023-10-28] MEDS: Sertraline 100 MG Tablet PO (20:13)
[2023-10-29] VITALS: BP 138/76; PULSE 79; RESP 18; TEMP 36.8; O2SAT 94
[2023-10-29] MEDS: Cefazolin 2 GM in 0.9% Normal Saline (100mL Bag) 100 ML IV (00:48)
[2023-10-29] MEDS: oxyCODONE 5 MG Tablet PO ×2 (00:48→06:50)
[2023-10-29] MEDS: dexAMETHasone 4 MG/ML Vial 2 MG IV ×2 (00:48→06:51)
[2023-10-29 02:50] VITALS: BP 126/81; PULSE 88; RESP 16; TEMP 36.8; O2SAT 95
[2023-10-29 02:52] VITALS: BMI 20.8
[2023-10-29] MEDS: Acetaminophen 500 MG Tablet 1000 MG PO (02:53)
[2023-10-29] MEDS: Lactated Ringers 1,000 ML 100 ML IV (04:32)
[2023-10-29 06:45] VITALS: BMI 20.8
[2023-10-29 06:48] VITALS: BP 133/75; PULSE 81; RESP 16; TEMP 37.2; O2SAT 96
[2023-10-29 07:14] LABS: Hematocrit 36.9 % (37-47); Mean Corp Hgb Conc 32.5 g/dL (32-36); Mean Corpuscular Hgb 30.7 pg (27.0-32.0); Mean Corpuscular Volume 94.4 fL (81-99); Mean Platelet Vol. 9.9 fl (6.2-12.0); Platelet Count 221 K/mm3 (150-450); RBC Distribution Width CV 13.1 % (11.6-14.6); RBC Distribution Width SD 45.6 fl (35.1-43.9); Red Blood Count 3.91 M/mm3 (4.2-5.4); White Blood Count 9.9 K/mm3 (4.4-11.0)
[2023-10-29] MEDS: Ensure Surgery 237 ML LIQUID PO ×2 (07:52→12:10)
[2023-10-29 08:25] LABS: Anion Gap 7 (5-15); BUN 12 mg/dL (7-18); BUN/Creat Ratio 15.5 RATIO (10-20); Calcium,Total 9.2 mg/dL (8.5-10.1); Chloride 107 mmol/L (98-107); Creatinine, Serum 0.78 mg/dL (0.55-1.02); EST Glomerular Filtration Rate 79 mL/min (>60); Est Glom Filt Rate - Afr Amer 96 mL/min (>60); Estimated Creatinine Clearance 70.83 ml/min; Glucose 127 mg/dL (74-106); Potassium 4.5 mmol/L (3.5-5.1); Sodium Level 139 mmol/L (136-145)
[2023-10-29 09:35] VITALS: BP 135/78; PULSE 85; RESP 16; TEMP 36.7; O2SAT 96
[2023-10-29] MEDS: busPIRone 5 MG Tablet 10 MG PO (09:41)
[2023-10-29] MEDS: Senna/Docusate Sodium 1 Tablet 2 TABLET PO (09:41)
[2023-10-29] MEDS: Methocarbamol 500 MG Tablet 1000 MG PO (09:42)
[2023-10-29] MEDS: Meloxicam 15 MG Tablet PO (09:42)
[2023-10-29] MEDS: Sertraline 50 MG Tablet PO (09:43)
--- NOTE | 2023-10-29 09:58 | CASEMGMT ---
DALIA BARRON Assessment: Face to Face with pt for initial transition planning/care coordination assessment. DALIA BARRON introduced self and role at [facility], pt voices understanding and consents to assessment. Pt is A&O x4 and answers all questions appropriately at this time. Pt sitting up in bed in no distress with neck brace on. Care providers, pharmacy, and demographics verified/updated. Admitting Dx: ant cervical fusion C3-4 PCP:Cornel Specialists:Yoel, ortho; Christine, pain mgmt [facility]: yes LNOK: Esme Jones dtr Living Arrangements: Pt lives in a single story home with 3 steps to enter with a rail. Pt reports she is I in ADL's and denies concerns at home. Transportation: Pt drives self and denies concerns with transportation. Pt friend or dtr will transport her until she can drive again. DME:None HHC/SNF: Denies hx of Pt states no concerns with going home at time of dc. Pt has been up ambulating without device. Pt states no further concerns/needs. CM to follow. Advised pt to ask CM if any further question/concerns/needs arise, voices understanding. Pt Goal: Home Plan: Home Alka GÓMEZ CM
--- NOTE | 2023-10-29 12:00 | PCM.PN.ORT ---
Subjective Subjective Postop day 1 status post C3 6 ACDF. Pain well-controlled. No significant dysphagia. Has dressing saturation from [place] drain which was changed document controller today. Has been walking around well. Objective Data Objective Data Vital Signs: Vital Signs Temp Pulse Resp BP Pulse Ox O2 Del Method O2 Flow Rate 98.1 F 85 16 135/78 H 96 Room Air 4 10/29/23 09:35 10/29/23 09:35 10/29/23 09:35 10/29/23 09:35 10/29/23 09:35 10/29/23 09:35 10/28/23 12:30 Oxygen Flow Rate (L/min) 4 Oxygen Delivery Method Room Air Weight: 141 lb 1.533 oz Body Mass Index (BMI) 20.8 Intake & Output: Intake and Output for Last 24 Hours 10/27/23 10/28/23 10/29/23 23:59 23:59 23:59 Intake Total 322 / 322 1420.00 / 1420.00 Balance 322 / 322 1420.00 / 1420.00 Lab / Micro Data 10/29/23 06:20 10/29/23 06:20 Labs: Laboratory Results - last 24 hr 10/29/23 06:20: WBC 9.9, RBC 3.91 L, Hgb 12.0, Hct 36.9 L, MCV 94.4, MCH 30.7, MCHC 32.5, RDW Std Deviation 45.6 H, RDW Coeff of Daniel 13.1, Plt Count 221, MPV 9.9, Sodium 139, Potassium 4.5, Chloride 107, Carbon Dioxide 25.0, Anion Gap 7, BUN 12, Creatinine 0.78, Estim Creat Clear Calc 70.83, Est GFR (MDRD) Af Amer 96, Est GFR (MDRD) Non-Af 79, BUN/Creatinine Ratio 15.5, Glucose 127 H, Calcium 9.2 Micro: Microbiology 10/21/23 08:46 Swab (Method) Nasal Screen MRSA/MSSA - Final Radiography Diagnostic Testing: Radiology Impression Cervical Spine X-Ray 10/28/23 07:45 IMPRESSION: Intraoperative imaging provided for anterior fusion at the C3-C4 C4-C5 and C5-C6 levels. Electronically Signed: Jensen Cisneros MD at 13:11 EDT , Physical Exam Narrative Dressing CDI with mild sanguinous staining. I remove the dressing and remove the [place] drain and placed a new dressing. Neuro intact. Assessment & Plan Assessment/Plan (1) S/P cervical spinal fusion: PLAN: Plan Postop day 1 status post C3 6 ACDF. PT OT mobilization. X-rays ordered. Okay for discharge once she clears PT and obtains x-rays. Follow-up in clinic in 2 weeks.
--- NOTE | 2023-10-29 12:19 | PN.HOSP_ITS ---
Reason for Visit Reason for Visit: Diagnoses Spondylolisthesis, cervical region (10/28/23) Encounter for other preprocedural examination (10/28/23) Arthrodesis status (10/28/23) Subjective Subjective No acute events overnight. Patient seen at bedside this morning. Cervical collar in place. Patient sitting up comfortably at edge of bed, conversing normally, no acute distress. Stated she had already ambulated the osorio this morning without significant issue. No other acute concerns. Objective Data Objective Data Vital Signs: Vital Signs Temp Pulse Resp BP Pulse Ox O2 Del Method O2 Flow Rate 98.1 F 85 16 135/78 H 96 Room Air 4 10/29/23 09:35 10/29/23 09:35 10/29/23 09:35 10/29/23 09:35 10/29/23 09:35 10/29/23 09:35 10/28/23 12:30 Oxygen Flow Rate (L/min) 4 Oxygen Delivery Method Room Air Weight: 64 kg Body Mass Index (BMI) 20.8 Intake & Output: Intake and Output for Last 24 Hours 10/27/23 10/28/23 10/29/23 23:59 23:59 23:59 Intake Total 322 / 322 1420.00 / 1420.00 Balance 322 / 322 1420.00 / 1420.00 Lab / Micro Data 10/29/23 06:20 10/29/23 06:20 Labs: Laboratory Results - last 24 hr 10/29/23 06:20: WBC 9.9, RBC 3.91 L, Hgb 12.0, Hct 36.9 L, MCV 94.4, MCH 30.7, MCHC 32.5, RDW Std Deviation 45.6 H, RDW Coeff of Daniel 13.1, Plt Count 221, MPV 9.9, Sodium 139, Potassium 4.5, Chloride 107, Carbon Dioxide 25.0, Anion Gap 7, BUN 12, Creatinine 0.78, Estim Creat Clear Calc 70.83, Est GFR (MDRD) Af Amer 96, Est GFR (MDRD) Non-Af 79, BUN/Creatinine Ratio 15.5, Glucose 127 H, Calcium 9.2 Micro: Microbiology 10/21/23 08:46 Swab (Method) Nasal Screen MRSA/MSSA - Final Radiography Diagnostic Testing: Radiology Impression Cervical Spine X-Ray 10/28/23 07:45 IMPRESSION: Intraoperative imaging provided for anterior fusion at the C3-C4 C4-C5 and C5-C6 levels. Electronically Signed: Jensen Cisneros MD at 13:11 EDT , Physical Exam Const alert, oriented x3, no apparent distress, average body habitus, healthy appearing and well nourished General Appearance: cooperative, comfortable, well kempt and well developed HEENT normocephalic, head/scalp atraumatic, hearing grossly normal bilaterally, nasal mucous membranes and turbinates normal and moist oral mucous membranes Eyes PERRL, EOMs intact bilaterally and conjunctivae normal Neck Neck Narrative: Cervical collar in place. Bandage in place over anterior neck incision appears clean and dry. Chest inspection of chest normal Resp normal respiratory effort, normal air movement, no use of accessory muscles and clear to auscultation bilaterally Cardio regular rate, regular rhythm, no murmurs and peripheral pulses 2+ throughout GI normal to inspection, nondistended, normoactive bowel sounds, soft to palpation, non-tender and non-distended Back/Spine normal ROM Extremity normal to inspection, full ROM and no pedal edema Skin no rashes or lesions noted Neuro moves all extremities and no focal motor deficits Speech: speech normal Psych mental status grossly normal Assessment & Plan Assessment/Plan (1) S/P cervical spinal fusion: PLAN: Plan Patient is a 63-year-old female who presented to [facility] 10/28/23 for planned orthopedic procedure. Medicine consulted postoperatively for medical management. 1. Cervical spondylolisthesis with stenosis ? Orthopedics primary. S/p C3-6 fusion with anterior discectomy on 10/27. Tolerated procedure well, no immediate postoperative complications. Further management per orthopedics. 2. Elevated BP without diagnosis of hypertension ? BP 163/90 during anesthesia, fluctuated between 130s to 150s systolic over 80s diastolic after that. Not on any home antihypertensives. Recommend outpatient follow-up. 3. History of IBS, mild anxiety/depression ? Stable. Continue home buspirone and sertraline. 4. Chronic herpes labialis ? Continued home medication. Total clinical time spent by myself addressing the patient's medical issues, reviewing all the data, and collaborating with patient's care team: 25 minutes. Charges/Coding Visit Charges Inpatient E&M: 66664 Subs Hosp L1
--- NOTE | 2023-10-29 13:30 | RAD_ITS ---
STUDY: X-RAY - CERVICAL SPINE REASON FOR EXAM: Female, 63 years old. s/p acdf -- Please do upright AP lateral TECHNIQUE: 3 view(s) of the cervical spine were obtained. COMPARISON: Comparison is made with prior study of September 25, 2023. FINDINGS: Normal anterior atlantoaxial articulation. Normal odontoid process. There is straightening of the normal cervical lordosis. The patient status post anterior fusion with prosthetic disc placement at the C3-C4, C4-C5 and C5-C6 levels. Normal visualized intervertebral neuroforamina. The soft tissue structures are unremarkable. RAD/Cerv Spine 2 or 3 Views IMPRESSION: Status post anterior fusion with prosthetic disc at the C3-C4, C4-C5 and C5-C6 levels. Electronically Signed: Jensen Cisneros MD at 14:10 EDT ,
[2023-10-29 14:06] VITALS: BP 131/82; PULSE 90; RESP 16; TEMP 36.6; O2SAT 97
--- NOTE | 2023-10-29 14:35 | CASEMGMT ---
RN CM NOTE: RN CM to room to complete KILLIAN form w/pt. Pt not in room/pt has been discharged home already. Unable to complete KILLIAN form. Maddy SALDAÑAN DALIA CM
== END 2023-10-29 14:38 | disposition home or self-care (01) ==
LOC: ACINP 06:26 → MS3 10-29 06:17 → ACINP 10-29 09:38
PROVIDERS: Admitting Provider Orthopaedic Surgery Orthopaedic Surgery of the Spine; PCP Family Medicine; Referring Provider Orthopaedic Surgery Orthopaedic Surgery of the Spine; Visit Provider Orthopaedic Surgery Orthopaedic Surgery of the Spine
PROC: (CPT 22551; principal; 2023-10-28 07:00)
DX: M48.02 Spinal stenosis, cervical region (principal); B00.1 Herpesviral vesicular dermatitis; K58.9 Irritable bowel syndrome, unspecified; M43.12 Spondylolisthesis, cervical region; M50.322 Other cervical disc degeneration at C5-C6 level; Z79.899 Other long term (current) drug therapy; R03.0 Elevated blood-pressure reading, without diagnosis of hypertension; F41.8 Other specified anxiety disorders; R00.1 Bradycardia, unspecified
CPT/HCPCS: 22551; 22552 ×2; 22845; 20931; 00670; 36415; 72040; 76000; 80048; 82962; 83735; 85025; 85027; 86703; 86706; 86708; 86803; 86850; 86900; 86901; 87081; 93005; 94668; 96361; 96365; 96366; 96375; 96376; 97116; 97162; 97166; 99221; C1713; J7120; G0378; J2405; J3475

== ENCOUNTER 2024-01-18 08:30 | Outpatient (RCR) | payer OTHER, MEDICARE, SELFPAY ==
--- NOTE | 2023-12-28 09:49 | HP.PTEVAL ---
Patient's Visit Information Visit Information Visit Information: JOSUE GONZALES is a 63 year old F referred to Physical Therapy by Dr. Johnson Diallo MD with a diagnosis of d/p cervical fusion 10/27 c56. Date of Evaluation: 12/28/23 Physical Therapist: Carlos Topete, DPT, OCS, CSCS Visit Plan Frequency: 2x /Week Duration: 4-6 Weeks Plan: 2x/week for 4-6 for 1. MH to neck 2. STM to R upper cervical, PROM R rotation, stretch R neck adn add SCM stretch to HEP. scar massage. 3. cervical and postural strength to HEP when feeling better Subjective Subjective: Cervical fusion anterior 10/28/23. Prior had pain R side of neck under jaw. Lifting made it really painful for about a year and was worse with lifting at work at [employer] in [employer]. Could not do anything so had the surgery. Lots of snapping or clicking at that time also. Snapping and clicking is gone. Pain is still there /10 with driving, 10/10 last week with yard work. Went to [employer] and swimming in the pool and hard to move head due to the arm movement involved there. Pressure to R side of neck eases it. No numbness tingling or weakness in arms. Sleep is OK now, hurts to turn head or turn over. Scheduled to go back to work 01/18, wants to retire and may seek disability. Hobbies include: outdoor sports and volleyball, not done these in a while. Basic ADLs: normal at home but painful. Pain R neck: Pain Intensity (Out of 10): 3 Pain Intensity Range: 3 and 10 Objective Objective: cervical AROM 60 R rot with pain, 65 L rotation no pain. 65 ext, Min deficits in retraciton no pain, SB are painful on R moreso with L sb, B to about 20 degrees. Posture is unremarkable, incision is anterior and mild scar tissue but healed well. Gait and transfers are I. TMJ moves well in opening and deviation and no clicking or problems with pain at TMJ UE AROM WNL and strength is 4/5 throughout wxcept L ext rotation shoulder which is weak but has been form a previous injury for long time. 4-. reflexes 1/3 bi and tri B. Sensation UE WNL to gross lgiht touch. - c/s compression, stretching SCM, lev scap and UT on L give pain along with L rotation is sharp pain. Patient painfree at rest but has sharp sudden pains with R rotation mostly whcih cause wincing. Balance/Special Test Scores Oswestry Neck Score: 21 Goals Goal 1:: Full R rotation cervical without sharp pain Goal Time Frame: 2-4 Weeks Goal 2:: sleep without interruption at night form pain neck Goal Time Frame: 4-6 Weeks Goal 3:: Patient feel 75% better overall with pain 2/10 at worst in neck and manageable Goal Time Frame: 4-6 Weeks Goal 4:: neck oswestry 15 or better Goal Time Frame: 4-6 Weeks Goal 5:: I appopriate HEp to minimize future problems Rehabilitation Potential Physical Therapy Diagnosis: pain in R cervical spine limiting comfortable funciton Rehabilitation Potential: Fair Anticipated Interventions Patient/Client Instruction: Educate patient on: Condition and Plan of Care For the Purpose of:: To decrease pain, To increase ROM, To improve nutrient delivery to tissue and To improve muscle performance and motor function Therapeutic Exercise to Include: Strength training, Postural training, Flexibilty training, Passive ROM and Active ROM For the Purpose of:: To decrease pain, To increase ROM, To improve nutrient delivery to tissue, To increase tolerance to activity/condition/position and To improve ability of physical actions for home/community/work/leisure Manual Therapy Techniques to Include: Scar massage, Passive ROM and Soft tissue mobilization For the Purpose of:: To decrease pain, To decrease swelling/inflammation, To increase ROM and To improve nutrient delivery to tissue Thermo therapy (hot pack): Yes For the Purpose of:: To decrease pain, To decrease swelling/inflammation, To increase ROM and To improve nutrient delivery to tissue Text: Thank you for the opportunity to evaluate your patient. For Medicare and Medicare HMO plans, please review the plan of care and approve it. It will need to be FAXED BACK to us at [phone] for Medicare purposes. For Medicare only, by signing this I certify the plan of care. Please let me know if there are questions or concerns regarding this plan of care. Physician Signature: Date:
--- NOTE | 2024-03-02 07:56 | HP.PT.NRP ---
Patient Information Patient Information: JOSUE GONZALES was seen in my office for initial evaluation on 12/28/23. The following Plan of Care was established for this patient: POC Established Initial Frequency: 2x /Week Initial Duration: 4-6 Weeks Anticipated Interventions Patient/Client Instruction: Educate patient on: Condition and Plan of Care For the Purpose of:: To decrease pain, To increase ROM, To improve nutrient delivery to tissue and To improve muscle performance and motor function Therapeutic Exercise to Include: Strength training, Postural training, Flexibilty training, Passive ROM and Active ROM For the Purpose of:: To decrease pain, To increase ROM, To improve nutrient delivery to tissue, To increase tolerance to activity/condition/position and To improve ability of physical actions for home/community/work/leisure Manual Therapy Techniques to Include: Scar massage, Passive ROM and Soft tissue mobilization For the Purpose of:: To decrease pain, To decrease swelling/inflammation, To increase ROM and To improve nutrient delivery to tissue Thermo therapy (hot pack): Yes For the Purpose of:: To decrease pain, To decrease swelling/inflammation, To increase ROM and To improve nutrient delivery to tissue Last Seen Last Seen: This patient was last seen in our office 01/18/24. Pertinent comments regarding their Physical therapy will appear below: Pt seen 6 visits of POC but did not attend any further visits after her f/u with doctor. At this point, it has been over 5 weeks and I will discontinue due to nonattendance. At this point I will be discontinuing this patient from physical therapy. I would be happy to see this patient again in the future if found appropriate by the physician. Thank you! Carlos Topete, DPT, OCS, CSCS Balance/Gait/Functional tests Balance/Special Test Scores Oswestry Neck Score: 21
== END 2024-01-18 19:00 | disposition home or self-care (01) ==
LOC: PT 08:30
PROVIDERS: PCP Family Medicine; Referring Provider Orthopaedic Surgery Orthopaedic Surgery of the Spine; Visit Provider Orthopaedic Surgery Orthopaedic Surgery of the Spine
DX: Z98.1 Arthrodesis status (principal)
CPT/HCPCS: 97110; 97140; 97161

== ENCOUNTER → 2025-02-24 | Outpatient (CLI) | payer MEDICARE, SELFPAY ==
[2025-02-24 12:28] LABS: Hematocrit 42.4 % (37-47); Hemoglobin 14.1 g/dL (12.0-15.0); Immature Granulocytes Count 0.010 X10^3/uL (0.0-0.0); Mean Corp Hgb Conc 33.3 g/dL (32-36); Mean Corpuscular Volume 94.2 fL (81-99); Mean Platelet Vol. 11.0 fl (6.2-12.0); NRBC Flagged by Analyzer 0 % (0-5); Platelet Count 230 K/mm3 (150-450); RBC Distribution Width CV 13.0 % (11.6-14.6); RBC Distribution Width SD 45.0 fl (35.1-43.9); Red Blood Count 4.50 M/mm3 (4.2-5.4); White Blood Count 4.4 K/mm3 (4.4-11.0)
[2025-02-24 12:45] LABS: AST(SGOT) 24 U/L (<=31); Alanine Aminotransfer ALT/SGPT 12 U/L (<=34); Albumin, Serum 4.7 g/dL (3.4-4.8); Alkaline Phosphatase 70 U/L (35-104); Anion Gap 14 (5-15); BUN 13 mg/dL (4-19); BUN/Creat Ratio 15.5 RATIO (10-20); Calcium,Total 9.8 mg/dL (7.6-11.0); Carbon Dioxide 22.5 mmol/L (21.0-32.0); Chloride 103 mmol/L (98-108); Globulin 2.6 g/dL (2.2-4.2); Glucose 68 mg/dL (70-99); Potassium 4.4 mmol/L (3.3-5.1)
== END | disposition home or self-care (01) ==
LOC: BIMLAB 09:32
PROVIDERS: PCP Family Medicine; Referring Provider Family Medicine; Visit Provider Family Medicine
DX: R53.82 Chronic fatigue, unspecified (principal)
CPT/HCPCS: 36415; 80053; 85025

== ENCOUNTER → 2025-03-02 | Outpatient (CLI) | payer MEDICARE, SELFPAY ==
--- NOTE | 2025-03-02 12:30 | BI_ITS ---
EXAM: SCRN MAMM (CAD)W/GERI BILAT DATE: 03/02/2025 CLINICAL HISTORY: F, Age 64 y/o , SCREENING Sister with breast cancer. History of bilateral breast implants. TECHNIQUE: SCRN MAMM (CAD)W/GERI BILAT COMPARISON: Prior exam(s) dated July 10, 2023.. FINDINGS: TISSUE DENSITY: The breasts are extremely dense, which lowers the sensitivity of mammography. Bilateral Breast Mammographic Findings: No significant masses, calcifications or other abnormalities are identified. Stable appearance of the bilateral breast implants. No suspicious masses, areas of developing architectural distortion, or suspicious calcifications. There has been no significant interval change. BI/SCRN MAMM (CAD)W/GERI BILAT IMPRESSION: Stable examination. OVERALL FINAL ASSESSMENT BI-RADS 2: BENIGN RECOMMENDATION: Routine annual follow-up in 1 Year A letter with findings and recommendations will be mailed to the patient. Reading Location: [id number]
--- OUTSIDE RECORDS SUMMARY | 2025-03-02 13:40 | XMS RPT_ITS | CCD ---
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 nausea/dyspepsia or vomiting Genitourinary-Female: No burning urination, painful urination, urinary incontinence, urinary frequency, abnormal vaginal bleeding or pelvic pain Musc Musculoskeletal: Positive for other; No abnormal gait, joint pain, back pain, limited range of motion, neck pain, numbness or tingling Skin Skin: No dry skin, redness, lesions, itchy eyes, rash or wounds Neuro Neurology: No abnormal gait, abnormal hearing, abnormal speech, dizziness, weakness, frequent falls, headache(s), memory loss, numbness or tingling Psych Psychiatric: No anxiety, No change in appetite, No depression, No memory loss and No Thoughts of harming yourself/Others Endo Endocrine: No cold intolerance, excessive sweating, fatigue, flushing, heat intolerance, increased thirst/drinking, increased hunger or weight change Aller/Imm Allergy/Immunologic: No itchy eyes, seasonal allergy symptoms, hives or wheezing Clayton/Lymp Hematologic/Lymphatic : No easy bleeding, easy bruising, enlarged lymph nodes or other Exam Const General: cooperative, healthy appearing and no acute distress Nutritional Appearance: thin HENMT Head: normal to inspection Ear (more content not included)... Normal [facility] Internal Medicine Office Vis iton 08-24-2024 Internal Medicine Office Visit [facility] [address] [place] [address] [place] [address] OFFICE VISIT Date of Service: 08/24/24 MR#: [id number] Acct: [id number] Name: ALLIE GONZALES Rep #: [id number] : 1960 Provider: Dr. Bradley Shaikh own, DO Age/Sex: 63/F Location: [facility] Status: Signed Intake Vital Signs 01/13/24 13:47 08/24/24 13:46 Height 5 ft 9 in 5 ft 9 in Weight: 137 lb 138 lb BMI 20.2 20.3 BP 110/78 116/64 Blood Pressure Location Lt brachial Lt brachial Position Sitting Sitting Respiration 16 16 Pulse 66 69 Pulse Source Monitor Monitor Temp 98.5 F 98.4 F Temp Source Temporal Temporal Pulse Oximetry (%) 98 97 Oxygen Delivery Method room air room air Intake Visit Reasons: MED FOLLOW UP Chief Complaint: med fu Cheesemaker Required: No Accompanied by: Self Is patient in pain?: No Allergies codeine Allergy (Severe, Verified 08/24/24 13:42) unknown pentazocine (From Talwin) Allergy (Verified 08/24/24 13:42) Unknown hydrocodone Adverse Reaction (Verified 08/24/24 13:42) Vomiting Sulfa (Sulfonamide Antibiotics) Adverse Reaction (Verified 08/24/24 13:42) itching, vommitting Medications ???Medication ???Instructions ???Recorded ???Confirmed ???Type sertraline 100 mg tablet 100 mg PO QHS depression #145 tabs 12/25/23 08/24/24 Rx famciclovir 500 mg tablet 500 mg PO BID PRN COLD SORES #30 05/31/24 08/24/24 Rx tabs buspirone 10 mg tablet 10 mg PO BID depression #180 tabs 07/29/24 08/24/24 Rx Have you fallen in the past year?: No PFSH Medical History H/O exam under anesthesia with epidural steroid injection Wears glasses Cancer Alcohol use Arthritis History of IBS Non-smoker History of melanoma neck and back pain Surgical History History of spinal fusion Status post trigger finger release skin cancer removal History of amputation of finger History of appendectomy History of hysterectomy Family History Sister Cancer, Onset Age: 68 stage one breast cancer Social History (Updated 08/24/24 @ 13:56 by Meenu Spears MA) Smoking Status: Never smoker alcohol intake: current alcohol intake frequency: a few times a week substance use type: does not use HPI HPI Chief Complaint: med fu Details: ALLIE GONZALES, is a 63 F who presents to the office today for refills on medication for her depression and anxiety and also discussion on right shoulder pain and left arm pain. 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 Her left arm pain is intermittent and not is acute. ROS Const Constitutional: No body ache, chills, excessive sweating, fatigue, fever(s), frequent falls, headache(s), snoring, weakness, weight change or change in appetite Eyes Eyes: No blurry vision, change in vision, eye pain or Light sensitivity ENT ENT: No abnormal hearing, ear or mastoid pain, tinnitus, nasal congestion, headache(s), neck pain or sore throat Resp Respiratory: No cough, shortness of breath, snoring or wheezing Cardio Cardiology: No chest pain at rest, chest pain with exertion, excessive sweating, dyspnea on exertion, lightheadedness, orthopnea or palpitations Gastro GI: No abdominal pain, change in bowel habits, constipation, cramping, diarrhea, nausea/dyspepsia or vomiting Genitourinary-Female: No burning urination, painful urination, urinary incontinence or urinary frequency Musc Musculoskeletal: No abnormal gait, joint pain, back pain, limited range of motion, muscle weakness, neck pain or numbness Skin Skin: No dry skin, redness, lesions, itchy eyes, rash or wounds Neuro Neurology: No abnormal gait, abnormal hearing, weakness, frequent falls, headache(s), memory loss or numbness Psych Psychiatric: No anxiety, No change in appetite, No depression, No memory loss and No Thoughts of harming yourself/Others Endo Endocrine: No cold intolerance, excessive sweating, fatigue, flushing, heat intolerance, increased thirst/drinking, increased hunger or weight change Aller/Imm Allergy/Immunologic: No itchy eyes, seasonal allergy symptoms, hives or wheezing Clayton/Lymp Hematologic/Lymphatic : No easy bleeding or easy bruising Exam Const General: cooperative, healthy appearing and no acute distress Nutritional Appearance: thin HENMT Head: normal to inspection Ears: hearing grossly normal bilaterally Mouth: oral mucosae normal Eyes General: appearance normal, both eyes and all related structures Neck Neck: normal visual inspection and full ROM Neck mass: No Resp Effort Inspection: normal respiratory effort Auscultation: Bilateral: Clear to Auscultation Ca (more content not included)... Normal [facility] Basophil percentageOrdered B y: Johnsonclary Diallo on 10-29-2023 Chloride [Moles/Vol] 107 mmol/L 98-107 [facility] Glucose [Mass/Vol] 127 mg/dL 74-106 [facility] Comment on above: Fasting Glucose resu lt greater than or equal to 126 mg/dL suggests DIABETES MELLITUS per A.D.A. criteria. Hemoglobin (Bld) [Mass/Vol] 12.0 g/dL 12.0-15.0 [facility] Potassium [Moles/Vol] 4.5 mmol/L 3.5-5.1 [facility] Sodium [Moles/Vol] 139 mmol/L 136-145 [facility] WBC (Bld) [#/Vol] 9.9 10*3/uL 4.4-11.0 [facility] Determination of erythrocyte mean corpuscular volume (MCV)Ordered By: Johnson Diallo on 10-29-2023 MCV (RBC) [Entitic vol] 94.4 fL 81-99 [facility] Erythrocyte distribution wid th ratioOrdered By: Johnsonclary Diallo on 10-29-2023 Erythrocyte distribution width (RBC) [Ratio] 13.1 % 11.6-14.6 [facility] Erythrocyte distribution wid th standard deviationOrdered By: Johnsonclary Diallo on 10-29-2023 Erythrocyte distribution width (RBC) [Entitic vol] 45.6 fL 35.1-43.9 [facility] Hematocrit Auto (Bld) [Volum e fraction]Ordered By: Johnson Diallo on 10-29-2023 Hematocrit (Bld) [Volume fraction] 36.9 % 37-47 [facility] Laboratory - Chemistry and C hemistry - challengeOrdered By: Johnson Diallo on 10-29-2023 CO2 [Moles/Vol] 25.0 mmol/L 21.0-32.0 [facility] Urea nitrogen/Creatinine [Mass ratio] 15.5 mg/mg 10-20 [facility] Laboratory - Hematology and Cell countsOrdered By: Johnson Diallo on 10-29-2023 MCH (RBC) [Entitic mass] 30.7 pg 27.0-32.0 [facility] MCHC (RBC) [Mass/Vol] 32.5 g/dL 32-36 [facility] Platelet mean volume (Bld) [Entitic vol] 9.9 fL 6.2-12.0 [facility] Platelets (Bld) [#/Vol] 221 10*3/uL 150-450 [facility] No Panel InformationOrdered By: Johnson Diallo on 10-29-2023 Estimated Creatinine Clearance Calc 70.83 ml/min [facility] Estimated GFR (MDRD) Amer 96 mL/min >60 [facility] Comment on above: GFR Calc Estimated GFR (MDRD) Non-Af Amer 79 mL/min >60 [facility] Comment on above: Non- GFR Calc RBC Auto (Bld) [#/Vol]Ordere d By: Johnson Diallo on 10-29-2023 RBC (Bld) [#/Vol] 3.91 10*6/uL 4.2-5.4 [facility] Serum or plasma calcium mariajose urement (mass/volume)Ordered By: Johnson Diallo on 10-29-2023 Calcium [Mass/Vol] 9.2 mg/dL 8.5-10.1 [facility] Serum or plasma creatinine m easurement (mass/volume)Ordered By: Johnson Diallo on 10-29-2023 Creatinine [Mass/Vol] 0.78 mg/dL 0.55-1.02 [facility] Comment on above: The validity of the calculated GFR & GFRAA in patients over 70 years has not been determined. Clinical correlation is essential. Serum or plasma urea nitroge n measurement (mass/volume)Ordered By: Johnson Diallo on 10-29-2023 Urea nitrogen [Mass/Vol] 12 mg/dL 7-18 [facility] Thin prep Papanicolaou smear with manual screeningOrdered By: Johnson Diallo on 10-29-2023 Thin prep Papanicolaou smear with manual screening 7 5-15 [facility] Thin prep Papanicolaou smear with manual screeningOrdered By: Johnson Diallo on 10-28-2023 Thin prep Papanicolaou smear with manual screening 61 mg/dL 74-106 [facility] Comment on above: MANAGEMENT OF PATIEN T CARE PER NURSING PROTOCOL Absolute lymphocyte countOrd ered By: Johnson Diallo on 10-21-2023 Lymphocytes Auto (Unsp spec) [#/Vol] 1.10 10*3/uL 0.83-4.51 [facility] Automated lymphocyte count a s percentage of total leukocytesOrdered By: Johnson Diallo on 10-21-2023 Lymphocytes/100 WBC Auto (Unsp spec) 26.4 % 19-41 [facility] Basophil percentageOrdered B y: Johnson Diallo on 10-21-2023 Basophils/100 WBC (Bld) 0.7 % 0-1 [facility] Eosinophils/100 WBC (Bld) 2.6 % 0-5 [facility] Monocytes/100 WBC (Bld) 7.9 % 0-10 [facility] Neutrophils (Bld) [#/Vol] 2.6 10*3/uL 2.0-7.7 [facility] Neutrophils/100 WBC (Bld) 62.2 % 47-70 [facility] HIV 1 and HIV-2 antibody ass ay with HIV-1 p24 antigen detectionOrdered By: Johnson Diallo on 10-21-2023 HIV 1+2 Ab+HIV1 p24 Ag IA Ql Non-Reactive Nonreactive [facility] Immature granulocytes/100 WB C Auto (Bld)Ordered By: Johnson Diallo on 10-21-2023 Immature granulocytes/100 WBC (Bld) 0.200 % 0.0-0.9 [facility] Comment on above: IG% - Immature Granu locytes (promyelocytes, myelocytes and metamyelocytes) > 1% indicates that a LEFT SHIFT is Present. Laboratory - Chemistry and C hemistry - challengeOrdered By: Johnson Diallo on 10-21-2023 Magnesium [Mass/Vol] 2.4 mg/dL 1.6-2.6 [facility] Laboratory - Hematology and Cell countsOrdered By: Johnson Diallo on 10-21-2023 Nucleated RBC/100 WBC (Bld) [Ratio] 0 % 0-5 [facility] No Panel InformationOrdered By: Johnson Diallo on 10-21-2023 Hepatitis A Antibody Total Negative Negative [facility] Comment on above: Comment: The HAV tot al antibody assay detects both IgG andIgM but does not differentiate between them. A negativeresult suggests susceptibility to infection. A positiveresult could be due to vaccination, previously resolvedinfection or active infection. Testing for HAV IgM shouldbe performed if active HAV infection is suspected. [facility] profiles that will automatically reflex positive HAVtotal antibody results to IgM (e.g., panel #[id number] HAVAntibody w/ Rfx).Performed at: [address] [id number] Director: Manohar Otero PhD, Phone: [phone] Hepatitis C Antibody Non-Reactive Nonreactive [facility] Comment on above: Non Reactive: < 0.8 Equivocal: >/= 0.8 to < 1.0 Reactive: >/= 1.0The CDC requires that a reactive/equivocal HCV antibody result be sent out for confirmation. HCV Quant by PCR testing. Nasal Screen MRSA/MSSA [facility] Serum hepatitis B virus surf anastasia antibody IgG detectionOrdered By: Johnson Diallo on 10-21-2023 HBV surface IgG Ql (S) Reactive [facility] Comment on above: Non Reactive: Incons istent with immunity less than <10 mIU/mL Reactive: Consistent with immunity greater than or equal to 10 mIU/mL Absolute lymphocyte countOrd ered By: Dr. Unger on 12-23-2022 Lymphocytes Auto (Unsp spec) [#/Vol] 1.16 10*3/uL 0.83-4.51 [facility] Basophil percentageOrdered B y: Dr. Unger on 12-23-2022 Basophils/100 WBC (Bld) 0.9 % 0-1 [facility] Chloride [Moles/Vol] 106 mmol/L 98-107 [facility] Eosinophils/100 WBC (Bld) 3.7 % 0-5 [facility] Glucose [Mass/Vol] 82 mg/dL 74-106 [facility] Neutrophils (Bld) [#/Vol] 2.6 10*3/uL 2.0-7.7 [facility] Neutrophils/100 WBC (Bld) 60.0 % 47-70 [facility] Potassium [Moles/Vol] 4.8 mmol/L 3.5-5.1 [facility] Sodium [Moles/Vol] 140 mmol/L 136-145 [facility] WBC (Bld) [#/Vol] 4.3 10*3/uL 4.4-11.0 [facility] Blood erythrocytes count (nu mber/volume)Ordered By: Dr. Unger on 12-23-2022 RBC (Bld) [#/Vol] 4.19 10*6/uL 4.2-5.4 [facility] Blood hemoglobin measurement (mass/volume)Ordered By: Dr. Unger on 12-23-2022 Hemoglobin (Bld) [Mass/Vol] 13.4 g/dL 12.0-15.0 [facility] Blood lymphocytes/100 leukoc ytesOrdered By: Dr. Unger on 12-23-2022 Lymphocytes/100 WBC (Bld) 26.9 % 19-41 [facility] Blood monocytes/100 leukocyt esOrdered By: Dr. Unger on 12-23-2022 Monocytes/100 WBC (Bld) 8.3 % 0-10 [facility] Blood platelet mean volumeOr dered By: Dr. Unger on 12-23-2022 Platelet mean volume (Bld) [Entitic vol] 10.9 fL 6.2-12.0 [facility] Determination of erythrocyte mean corpuscular volume (MCV)Ordered By: Dr. Unger on 12-23-2022 MCV (RBC) [Entitic vol] 98.8 fL 81-99 [facility] Hematocrit Auto (Bld) [Volum e fraction]Ordered By: Dr. Unger on 12-23-2022 Hematocrit (Bld) [Volume fraction] 41.4 % 37-47 [facility] Laboratory - Chemistry and C hemistry - challengeOrdered By: Dr. Unger on 12-23-2022 CO2 [Moles/Vol] 26.0 mmol/L 21.0-32.0 [facility] Urea nitrogen/Creatinine [Mass ratio] 23.3 mg/mg 10-20 [facility] Laboratory - Hematology and Cell countsOrdered By: Dr. Unger on 12-23-2022 Erythrocyte distribution width (RBC) [Entitic vol] 46.5 fL 35.1-43.9 [facility] Erythrocyte distribution width (RBC) [Ratio] 12.8 % 11.6-14.6 [facility] Immature granulocytes/100 WBC (Bld) 0.200 % 0.0-0.9 [facility] Comment on above: IG% - Immature Granu locytes (promyelocytes, myelocytes and metamyelocytes) > 1% indicates that a LEFT SHIFT is Present. MCH (RBC) [Entitic mass] 32.0 pg 27.0-32.0 [facility] Nucleated RBC/100 WBC (Bld) [Ratio] 0 % 0-5 [facility] MCHC Auto (RBC) [Mass/Vol]Or dered By: Dr. Unger on 12-23-2022 MCHC (RBC) [Mass/Vol] 32.4 g/dL 32-36 [facility] No Panel InformationOrdered By: Dr. Unger on 12-23-2022 Estimated GFR (MDRD) Amer 96 mL/min >60 [facility] Comment on above: GFR Calc Estimated GFR (MDRD) Non-Af Amer 80 mL/min >60 [facility] Comment on above: Non- GFR Calc Thyroid Stimulating Hormone (TSH) 3.78 uIU/mL 0.358-3.74 [facility] Platelets bldOrdered By: Dr. Unger on 12-23-2022 Platelets (Bld) [#/Vol] 225 10*3/uL 150-450 [facility] Serum or plasma calcium mariajose urement (mass/volume)Ordered By: Dr. Unger on 12-23-2022 Calcium [Mass/Vol] 9.6 mg/dL 8.5-10.1 [facility] Serum or plasma creatinine m easurement (mass/volume)Ordered By: Dr. Unger on 12-23-2022 Creatinine [Mass/Vol] 0.77 mg/dL 0.55-1.02 [facility] Comment on above: The validity of the calculated GFR & GFRAA in patients over 70 years has not been determined. Clinical correlation is essential. Serum or plasma urea nitroge n measurement (mass/volume)Ordered By: Dr. Unger on 12-23-2022 Urea nitrogen [Mass/Vol] 18 mg/dL 7-18 [facility] Thin prep Papanicolaou smear with manual screeningOrdered By: Dr. Unger on 12-23-2022 Thin prep Papanicolaou smear with manual screening 8 5-15 [facility] XR KNEE THREE VIEWS RIGHTon 06-29-2017 XR KNEE THREE VIEWS RIGHT ORIGINALXR KNEE THREE VIEWS RIGHT CLINICAL STATEMENT: rt knee pain, no known injury, pain posteriorly for about 4 months COMPARISON: None FINDINGS: No acute fracture, dislocation, periosteal reaction, lytic lesion, or erosions. No abnormal soft tissue calcifications. No joint effusion is seen. There are mild degenerative changes of the medial compartment with tiny spurs and minimal joint space narrowing. A bone island noted in the proximal tibia. IMPRESSION: No significant radiographic finding. Minimal degenerative changes of the medial compartment. I have personally reviewed the images of this examination and agree with the resident's findings and interpretation. Interpreted By: Chay Graves MDPreliminary Report By: Leda Estrada DOElectronically Signed By: Chay Graves MD Dictated Date: 06/29/2017 10:30:24 AM Prelim Date: 06/29/2017 10:33:16 AM Sign Date: 06/29/2017 11:12:24 AM Normal [facility] ([place]) Vital Signs Date Time Vital Sign Value Performing Clinician [place] nobles 02-24-2025 08:54-0400 Body mass index (BMI) [Ratio] 20.2 kg/m2 Dr. Bradley Unger DO Work Phone: [facility] 02-24-2025 08:54-0400 Body temperature 98 [degF] Dr. Bradley Unger DO Work Phone: [facility] 02-24-2025 08:54-0400 Body weight 62.[address] Bradley Unger DO Work Phone: [facility] 02-24-2025 08:54-0400 Diastolic blood pressure 76 mm[Hg] Dr. Bradley Unger DO Work Phone: [facility] 02-24-2025 08:54-0400 Heart rate 58 /min Dr. Bradley Unger DO Work Phone: [facility] 02-24-2025 08:54-0400 Respiratory rate 16 /min Dr. Bradley Unger DO Work Phone: [facility] 02-24-2025 08:54-0400 SaO2% (BldA) [Mass fraction] 98 % Dr. Bradley Unger DO Work Phone: [facility] 02-24-2025 08:54-0400 Systolic blood pressure 126 mm[Hg] Dr. Bradley Unger DO Work Phone: [facility] 10-29-2023 14:06-0400 Body temperature 97.9 [degF] Dr. Bradley Unger Work Phone: [facility] 10-29-2023 14:06-0400 Diastolic blood pressure 82 mm[Hg] Dr. Bradley Unger Work Phone: [facility] 10-29-2023 14:06-0400 Heart rate 90 /min Dr. Bradley Unger Work Phone: [facility] 10-29-2023 14:06-0400 Respiratory rate 16 /min Dr. Bradley Unger Work Phone: [facility] 10-29-2023 14:06-0400 SaO2% (BldA) [Mass fraction] 97 % Dr. Bradley Unger Work Phone: [facility] 10-29-2023 14:06-0400 Systolic blood pressure 131 mm[Hg] Dr. Bradley Unger Work Phone: [facility] 10-28-2023 15:19-0400 Body height 175.[address] Bradley Unger Work Phone: [facility] 10-28-2023 15:19-0400 Body mass index (BMI) [Ratio] 20.8 kg/m2 Dr. Bradley Unger Work Phone: [facility] 10-28-2023 15:19-0400 Body weight [address] Bradley Unger Work Phone: [facility] 10-28-2023 12:30-0400 Inhaled oxygen flow rate 4 L/min Dr. Bradley Unger Work Phone: [facility] 10-14-2023 11:22-0400 Body mass index (BMI) [Ratio] 20.8 kg/m2 Dr. Bradley Unger Work Phone: [facility] 10-14-2023 11:22-0400 Body temperature 97.7 [degF] Dr. Bradley Unger Work Phone: [facility] 10-14-2023 11:22-0400 Body weight 63.[address] Bradley Unger Work Phone: [facility] 10-14-2023 11:22-0400 Diastolic blood pressure 68 mm[Hg] Dr. Bradley Unger Work Phone: [facility] 10-14-2023 11:22-0400 Heart rate 64 /min Dr. Bradley Unger Work Phone: [facility] 10-14-2023 11:22-0400 Respiratory rate 16 /min Dr. Bradley Unger Work Phone: [facility] 10-14-2023 11:22-0400 SaO2% (BldA) [Mass fraction] 97 % Dr. Bradley Unger Work Phone: [facility] 10-14-2023 11:22-0400 Systolic blood pressure 116 mm[Hg] Dr. Bradley Unger Work Phone: [facility] 06-30-2023 08:51-0500 Body height 175.[address] Bradley Unger Work Phone: [facility] 06-30-2023 08:51-0500 Body mass index (BMI) [Ratio] 20.2 kg/m2 Dr. Bradley Unger Work Phone: [facility] 06-30-2023 08:51-0500 Body temperature 97.4 [degF] Dr. Bradley Unger Work Phone: [facility] 06-30-2023 08:51-0500 Body weight 62.[address] Bradley Unger Work Phone: [facility] 06-30-2023 08:51-0500 Diastolic blood pressure 72 mm[Hg] Dr. Bradley Unger Work Phone: [facility] 06-30-2023 08:51-0500 Heart rate 67 /min Dr. Bradley Unger Work Phone: [facility] 06-30-2023 08:51-0500 Respiratory rate 16 /min Dr. Bradley Unger Work Phone: [facility] 06-30-2023 08:51-0500 SaO2% (BldA) [Mass fraction] 97 % Dr. Bradley Unger Work Phone: [facility] 06-30-2023 08:51-0500 Systolic blood pressure 120 mm[Hg] Dr. Bradley Unger Work Phone: [facility] 02-24-2023 10:19-0400 Body height 175.[address] Bradley Unger Work Phone: [facility] 02-24-2023 10:19-0400 Body mass index (BMI) [Ratio] 20 kg/m2 Dr. Bradley Unger Work Phone: [facility] 02-24-2023 10:19-0400 Body temperature 97.5 [degF] Dr. Bradley Unger Work Phone: [facility] 02-24-2023 10:19-0400 Body weight 61.[address] Bradley Unger Work Phone: [facility] 02-24-2023 10:19-0400 Diastolic blood pressure 70 mm[Hg] Dr. Bradley Unger Work Phone: [facility] 02-24-2023 10:19-0400 Heart rate 64 /min Dr. Bradley Unger Work Phone: [facility] 02-24-2023 10:19-0400 Respiratory rate 14 /min Dr. Bradley Unger Work Phone: [facility] 02-24-2023 10:19-0400 SaO2% (BldA) [Mass fraction] 97 % Dr. Bradley Unger Work Phone: [facility] 02-24-2023 10:19-0400 Systolic blood pressure 114 mm[Hg] Dr. Bradley Unger Work Phone: [facility] 02-03-2023 08:12-0400 Body mass index (BMI) [Ratio] 20.2 kg/m2 Dr. Bradley Unger Work Phone: [facility] 02-03-2023 08:12-0400 Body temperature 95 [degF] Dr. Bradley Unger Work Phone: [facility] 02-03-2023 08:12-0400 Body weight 62.[address] Bradley Unger Work Phone: [facility] 02-03-2023 08:12-0400 Diastolic blood pressure 64 mm[Hg] Dr. Bradley Unger Work Phone: [facility] 02-03-2023 08:12-0400 Heart rate 57 /min Dr. Bradley Unger Work Phone: [facility] 02-03-2023 08:12-0400 Respiratory rate 18 /min Dr. Bradley Unger Work Phone: [facility] 02-03-2023 08:12-0400 SaO2% (BldA) [Mass fraction] 99 % Dr. Bradley Unger Work Phone: [facility] 02-03-2023 08:12-0400 Systolic blood pressure 102 mm[Hg] Dr. Bradley Unger Work Phone: [facility] 12-23-2022 08:16-0400 Body height 175.[address] Bradley Unger Work Phone: [facility] 12-23-2022 08:16-0400 Body mass index (BMI) [Ratio] 20.4 kg/m2 Dr. Bradley Unger Work Phone: [facility] 12-23-2022 08:16-0400 Body temperature 96 [degF] Dr. Bradley Unger Work Phone: [facility] 12-23-2022 08:16-0400 Body weight 62.[address] Bradley Unger Work Phone: [facility] 12-23-2022 08:16-0400 Diastolic blood pressure 60 mm[Hg] Dr. Bradley Unger Work Phone: [facility] 12-23-2022 08:16-0400 Heart rate 66 /min Dr. Bradley Unger Work Phone: [facility] 12-23-2022 08:16-0400 Respiratory rate 18 /min Dr. Bradley Unger Work Phone: [facility] 12-23-2022 08:16-0400 SaO2% (BldA) [Mass fraction] 100 % Dr. Bradley Unger Work Phone: [facility] 12-23-2022 08:16-0400 Systolic blood pressure 134 mm[Hg] Dr. Bradley Unger Work Phone: [facility] Encounters Encounter Date Encounter Type Care Provider Facility Start: 02-24-2025 Encounter for genera l adult medical examination without abnormal findings Bradley Unger [facility] Start: 02-24-2025 End: 02-24-[address] Bradley Gramajo DO -[facility] Work Phone: Start: 02-24-2025 End: 02-24-[address] Bradley Unger DO Work Phone: -[facility] Start: 11-28-2024 Non-patient / Non-visit Miriam Damico ME -[facility] Work Phone: Start: 11-28-2024 ambulatory Miriam Damico Facility:[facility] Start: 08-24-2024 End: 08-24-2024 ambulatory Bradley Unger Facility:[facility] Start: 10-29-2023 Non-patient / Non-visit Dr. Hernandez Work Phone: [facility] Start: 10-28-2023 Non-patient / Non-visit Dr. Hernandez Work Phone: [facility] Work Phone: Start: 10-28-2023 Non-patient / Non-visit Dr. Hernandez Work Phone: [facility] Start: 10-28-2023 End: 10-29-2023 Evaluation and management of inpatient Dr. Bradley Unger Work Phone: [facility]-Medical Surgical 3 Work Phone: Start: 10-28-2023 End: 10-29-[address] Bradley Unger Work Phone: [facility] Work Phone: Start: 10-21-2023 End: 10-21-2023 Non-patient / Non-visit Dr. Bradley Unger Work Phone: [facility] Work Phone: Start: 10-20-2023 End: 10-20-[address] Bradley Unger Work Phone: [facility] Work Phone: Start: 10-14-2023 End: 10-14-[address] Bradley Unger Work Phone: [facility] Work Phone: Start: 09-25-2023 End: 09-25-[address] Bradley Unger Work Phone: [facility] Work Phone: Start: 08-07-2023 End: 08-07-[address] Bradley Unger Work Phone: [facility] Work Phone: Start: 07-25-2023 End: 07-25-[address] Bradley Unger Work Phone: [facility] Work Phone: Start: 07-25-2023 End: 07-25-[address] Bradley Unger Work Phone: [facility]-MRI - [facility] Work Phone: Start: 07-10-2023 End: 07-10-[address] Bradley Unger Work Phone: [facility] Work Phone: Start: 07-10-2023 End: 07-10-[address] Bradley Unger Work Phone: [facility]-Outpatient Breast Imaging Work Phone: Start: 06-30-2023 End: 06-30-[address] Bradley Unger Work Phone: [facility] Work Phone: Start: 02-24-2023 End: 02-24-[address] Bradley Unger Work Phone: [facility] Work Phone: Start: 02-24-2023 End: 02-24-[address] Bradley Unger Work Phone: [facility] Work Phone: Start: 02-03-2023 End: 02-03-[address] Bradley Unger Work Phone: [facility] Work Phone: Start: 12-23-2022 End: 12-23-[address] Bradley Unger Work Phone: [facility] Work Phone: Start: 12-23-2022 End: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 Antibiotics) Adverse Reaction (Verified 10/20/23 10:25) itching, vommitting Medications sertraline 100 mg tablet 100 mg PO QHS depression #145 tabs 12/23/22 [Rx Confirmed 10/20/23] buspirone 10 mg tablet 10 mg PO BID depression #180 tabs 06/07/23 [Rx Confirmed 10/20/23] hydrocodone-acetaminophen 5-325mg 5mg-325mg 1 tab PO TID PRN pain 10/14/23 [History Confirmed 10/20/23] famciclovir 500 mg tablet 500 mg PO BID PRN COLD SORES 10/16/23 [History Confirmed 10/20/23] [facility] Medical History (Updated 10/20/23 @ 10:26 by Margaxu Hwang) Alcohol use Arthritis Cancer H/O exam under anesthesia with epidural steroid injection History of IBS History of melanoma neck and back pain Non-smoker Wears glasses Surgical History History of amputation of finger History of appendectomy History of hysterectomy skin cancer removal Status post trigger finger release Family History Sister Cancer, Onset Age: 68 stage one breast cancer Social History Smoking Status: Never smoker alcohol intake: current alcohol intake frequency: a few times a week HPI cervical spine Details: This documentation accurately reflects the service provided and the decisions made by me, Dr. Johnson Diallo MD 10/20/23 1020. Part of today?s visit was documented by Margaux Gramajo ATC, acting as scribe. ALLIE GONZALES is a 63 year old F here today for pre-op for anterior cervical spine disc fusion. Patient states pain has pretty much stayed the same since herlast visit. She has gotten epidural injections which was on 09/10/[address] King and he also gave her a prescription for hydrocodone to take for the pain. Allie continues to have right-sided neck pain but also gets numbness in both fingertips worse on the left than the right. She has had multiple epidural steroid injections. She is also being started with hydrocodone by Dr. King recently. Her pain is affecting her quality of life and is here for her preoperative visit. Following is a previous history. 09/25/23: ALLIE GONZALES is a 62 year old F here today for follow up on neck pain. Pt. was seen by pain management and received two steroid injections which she states were not effective in relieving her pain and discomfort. She states she does experience some intermittent bilateral finger numbness and tingling. Her pain is aggravated with heavy lifting she is required to do at work. Vic had 2 sets of epidural injections both transforaminal as well as interlaminar by Dr. King over the last 2 months. Her first injection gave hersome temporary relief but the second injection did not seem to give her any relief. She is also going through months of physical therapy without any significant relief. She has not noticed tingling numbness in both hands and thetips of index and middle fingers. She is however not bothered significantly by the numbness. She continues to have neck pain which is right- sided and goes along the trapezius. 08/07/23: ALLIE GONZALES is a 62 year old F here today for cervical spine pain. She reports a nine month history of neck pain. She has seen a chiropractor, PT and had cortisone injections with minimal relief. She reports constant dull, sharp and stabbing pain in her neck. She reports the pain is worse the pain is worse on the right side. She reports when driving her fingers will become tingling and numb. She recently has a cervical spine MRI. Allie does not remember any injury that started her pain. She did not have any neck pain priorto a year ago. She says that the neck pain is in the right paraspinal region goes up to the mastoid region and sometimes the occiput and sometimes along the trapezius. She does not have any left-sided pain. She does not have any radicular pain below the shoulder. She has some on and off numbness in the fingertips on both sides. She is right-hand dominant. She denies dropping objects or any dexterity issues. She denies any balance issues. She has tried physical therapy, chiropractic treatment, trigger point injections. Ortho Exam General General: Yes no acute distress Neurologic: Yes alert and Yes oriented x3 Spine SPINE TESTING CERVICAL THORACIC LUMBAR Musculoskeletal Strength 0=absent - 5=normal Details: Examination of the neck shows right paraspinal tenderness in upper cervical region. Neurologic evaluation of upper extremity shows 5 x 5 power in all muscles normal sensations in all dermatomes. Neli's negative. Examination of both hands shows positive carpal tunnel compression test negativeTinel sign negative Phalen test. Coding Level of Care Code Off vis,est,level 4 Diagnoses Spondylolisthesis, cervical region M43.12 Time Spent (min) 45 Assessment and Plan Assessment and Plan (1) Spondylolisthesis, cervical region: Status: Acute Plan I again reviewed her cervical spine x-rays and MRI done over the last few months. These show C3-4 spondylolisthesis which is present in the neutral and flexion views but reduces on extension views suggestive of dynamic instability. C4-5 and C5-6 shows significant disc degeneration with disc height loss. Reversal of cervical lordosis in the neutral view is noticed. MRI shows right foraminal stenosis C3-4 and bilateral mild foraminal stenosis at C4-5 and left foraminal stenosis at C5-6. I explained to her options of treatment which include continued nonoperative treatment measures versus surgery. She says that she has tried multiple different nonsurgical modalities including physical therapy, chiropractic treatment, trigger point injections, epidural injections without significant relief. She wishes to proceed with surgical intervention as her symptoms are affecting her quality of life and activities of daily living. I went over surgical options in detail with the patient. She has reversal of cervical lordosis along with unstable C3-4 spondylolisthesis. I recommended surgery in the form of C3-5 ACDF with possible inclusion of C5-6. At the C5-6 only has left-sided foraminal stenosis, and at this time she does mention of left worse than right hand numbness. Considering this we will include C3-6 in the surgicalprocedure. Surgery will be C3-6 ACDF. All risk benefits and alternatives to surgery were discussed in detail. The risks include but are not limited to infection, bleeding, injury to nerves and vessels, esophageal injury, recurrent laryngeal injury, Melida syndrome, dysphagia, dysphonia, pneumonia, atelectasis,cardiopulmonary event, DVT, pulm embolism, stroke, pseudoarthrosis, hardware failure, subsidence, need for further surgeries, adjacent segment degeneration. Patient understands and agrees to proceed with surgery. Consent was signed. 10/28/23 0728 <Electronically signed by Johnson Diallo MD> Cosigner Signature (if applicable): CC: Dr. Johnson Diallo MD; Dr. Bradley Unger, DO~ Signed [facility] Work Phone: Evaluation note* Diagnosis Onset Date Resolution Status Seborrheic keratoses, inflamed acute Chronic anxiety chronic Depression chronic [facility] Work Phone: Evaluation note* Diagnosis Onset Date Resolution Status Seborrheic keratoses, inflamed acute Chronic anxiety chronic Depression chronic Neck pain acute Chronic anxiety chronic Depression chronic Neck pain acute [facility] Work Phone: Evaluation note* Diagnosis Onset Date Resolution Status Neck pain acute Depression chronic Fatigue chronic [facility] Work Phone: Evaluation note* Diagnosis Onset Date Resolution Status Spondylolisthesis, cervical region acute Spondylolisthesis, cervical region acute Neck pain acute Spondylolisthesis, cervical region acute Depression chronic Spondylolisthesis, cervical region acute S/P cervical spinal fusion a cute Spondylolisthesis, cervical region acute [facility] Work Phone: Evaluation note* Diagnosis Onset Date Resolution Status Admit Date Physical exam, annual acute Feb 8:45am Chronic anxiety chronic February 8:45am Fatigue chronic February 24 8:45am [facility] Work Phone: Reason for referral (narrative)No reason for referral information availableSan [facility] Work Phone: Summary Purpose Family History No Family History Records Found Relationship Condition Age at Onset Recorded Date/T charity sister Malignant neoplasm 68 Advance Directives No Advanced Directives Records Found Advance Directive Response Recorded Date/ Time Living Will No March 07 0 10:06am Power of Shredder Picker No March 07 020 10:06am Advance Directive Response Recorded Date/ Time Living Will No March 07 0 9:06am Power of Shredder Picker No March 07, 020 9:06am Advance Directive Response Recorded Date/ Time Living Will No October 28, 2023 3:19pm Power of Shredder Picker No October 27 4 3:19pm Chief Complaint and Reason for Visit Chief Complaint FU/MED REFILLS Reason for Visit Seborrheic keratoses , inflamed Chronic anxiety Depression Chief Complaint FU/MED REFILLS 6 wk FU NECK PAIN AND EAR PAIN, RIGHT SIDE EORDER- neck pain Reason for Visit Seborrheic keratoses , inflamed Chronic anxiety Depression Neck pain Chronic anxiety Depression Neck pain Chief Complaint F/U FROM 02/03/23 MED S SCREENING Reason for Visit Neck pain Depression Fatigue Chief Complaint F/U FROM 02/03/23 MED S SCREENING BILATERAL ARM PAIN Reason for Visit Neck pain Depression Fatigue Chief Complaint SCREENING BILATERAL ARM PAIN CERVICAL SPINE CERVICAL SPINE xray room 4 surgical clearance cervical spine PREOP Eras Anterior Cervical Fusion C3-4, Eras Anterior Cervical Fusion C3-4, Eras Anterior Cervical Fusion C3-4, Eras Anterior Cervical Fusion C3-4, Reason for Visit Spondylolisthesis, c ervical region Spondylolisthesis, cervical region Neck pain Spondylolisthesis, cervical region Depression Spondylolisthesis, cervical region S/P cervical spinal fusion Spondylolisthesis, cervical region Chief Complaint Admit Date Amb Documentation November 28, 2024 11:37a m YEARLY February 24, 2025 8:4 5am Reason for Visit Admit Date Physical exam, annual February 24, 2025 8 :45am Chronic anxiety February 24, 2025 8:4 5am Fatigue February 24, 2025 8:4 5am Additional Source Comments INFORMATION SOURCE (unrecogn ized section and content) DATE CREATED AUTHOR 01/19/2018 [facility] ([place]) DATE CREATED AUTHOR AUTHOR'S ORGANIZ ATION 02/26/2025 [facility] Care Teams (unrecognized sec tion and content) Team Status: Active Member Role Status Dates Dr. Bradley Unger , DO Family Provider Active Dr. Bradley Unger , DO Primary Care Provider Active Team Status: Inactive Member Role Status Dates Dr. Bradley Unger , DO Primary Care Pr ovider, Attending Provider, Referring Provider Active Team Status: Inactive Member Role Status Dates Dr. Bradley Unger , DO Primary Care Provider, Referr ing Provider Active Dr. Johnson Diallo MD Attending Provider Active Team Status: Inactive Member Role Status Dates Dr. Bradley Unger , Primary Care Provider Active Dr. Estuardo Vasquez MD Attending Provider Active Team Status: Active Member Role Status Dates Dr. Bradley Unger , DO Primary Care Provider Active Dr. Estuardo Vasquez MD Attending Provider Active Dr. Johnson Diallo MD Referring Provider Active Team Status: Active Member Role Status Dates Dr. Bradley Unger , DO Primary Care Provider Active Dr. Johnson Diallo MD Admit Provider, At tending Provider, Referring Provider, Other Provider Active Team Status: Active Member Role Status Dates Dr. Bradley Unger , DO Primary Care Provider Active Dr. Johnson Diallo MD Admit Provider, Re ferring Provider, Other Provider Active Dr. Reddy Gibson MD Attending Provider, Other Provi margy Active Team Status: Active Member Role Status Dates Dr. Bradley Unger , DO Primary Care Provider Active Dr. Johnson Diallo MD Admit Provider, At tending Provider, Referring Provider, Other Provider Active Dr. Reddy Gibson MD Other Provider Active Dr. Dustin Blum , DO Other Provider Active Team Status: Inactive Member Role Status Dates Dr. Bradley Unger DO Primary Care Provider Active Dr. Johnson Diallo MD Admit Provider, At tending Provider, Referring Provider Active Dr. Reddy Gibson MD Other Provider Active Dr. Dustin Blum , DO Other Provider Active Team Status: Active Member Role/Relationship Status Dates Dr. Bradley Unger DO Primary Care Provider Active Team Status: Active Member Role/Relationship Status Dates Miriam Damico MA Attending Provider Acti ve Start: November 28, 2024 Team Status: Inactive Member Role/Relationship Status Dates Dr. Bradley Unger DO Primary Care Provider Active Start: February 24, 2025 End: February 24, 2025 Dr. Bradley Unger DO Attending Provider Active Start: February 24, 2025 End: February 24, 2025 Dr. Bradley Unger DO Referring Provider Active Start: February 24, 2025 End: February 24, 2025 Team Status: Active Member Role/Relationship Status Dates Dr. Bradley Unger DO Primary Care Provider Active Start: February 24, 2025 Dr. Bradley Unger DO Attending Provider Active Start: February 24, 2025 Dr. Bradley Unger DO Referring Provider Active Start: February 24, 2025 Goals (unrecognized section and content) Goals may be documented in a n alternate sectionGoals may be documented in an alternate sectionGoals may be documented in an alternate sectionGoals may be documented in an alternate sectionGoals may be documented in an alternate section FOR RECORDS PERTAINING TO PATIENTS WHO ARE [...] BE BASED ON THE PRIMARY CLINICAL RECORDS. [employer] [facility]. provides no warranty or guarantee of the accuracy or completeness of information in this document.
== END | disposition home or self-care (01) ==
PROVIDERS: PCP Family Medicine; Referring Provider Family Medicine; Visit Provider Family Medicine
DX: Z12.31 Encounter for screening mammogram for malignant neoplasm of breast (principal)
CPT/HCPCS: 77063; 77067